=== PATIENT | male | born 1965 | race Two or more races ===

== ENCOUNTER 2020-03-21 13:48 | Outpatient (REF) | payer OTHER, SELFPAY | END 2020-03-21 13:49 | disposition home or self-care (01) | LOC: HO.LAB 13:48 | PROVIDERS: Visit Provider Internal Medicine | DX: Z20.828 Contact with and (suspected) exposure to other viral communicable diseases (principal) | CPT/HCPCS: C9803; U0003 ==

== ENCOUNTER 2021-01-12 09:21 | Outpatient (REF) | payer OTHER, SELFPAY ==
[2021-01-12 10:29] LABS: MANUAL DIFF FLAG NO
[2021-01-12 10:41] LABS: Basophils Percent Auto 0.6 % (0-2); Eosinophils Absolute Auto 0.3 X10*3/uL (0.0-0.4); Eosinophils Percent Auto 6.7 % (0-4); Hematocrit 41.6 % (42-52); Hemoglobin 14.5 g/dl (14.0-18.0); Lymphocytes Absolute Auto 1.7 X10*3/uL (1.2-4.9); Lymphocytes Percent Auto 35.6 % (20-40); Mean Corpuscular HGB Conc 34.9 g/dl (31.0-36.0); Mean Corpuscular Hemoglobin 29.3 pg (27.0-33.0); Mean Platelet Volume 8.4 fL (9.4-12.4); Monocytes Absolute Auto 0.8 X10*3/uL (0.1-1.2); Monocytes Percent Auto 17.5 % (2-11); Neutrophils Absolute Auto 1.9 X10*3/uL (2.0-8.3); Neutrophils Percent Auto 39.6 % (45-73); Platelet Count 201 X10*3/uL (160-400); Red Blood Count 4.95 X10*6/uL (4.60-5.80); Red Cell Distribution Width 12.4 % (11.0-16.0); White Blood Count 4.8 X10*3/uL (4.8-10.8)
[2021-01-12 10:57] LABS: Alanine Aminotransferase 24 U/L (0-40); Albumin Level 4.3 g/dL (3.5-5.0); Alkaline Phosphatase 64 U/L (39-117); Anion Gap 11 (12-20); Aspartate Amino Transferase 24 U/L (5-37); Bilirubin Total 0.8 mg/dL (0.0-1.0); Blood Urea Nitrogen 15 mg/dL (9-16); Calcium 9.5 mg/dL (8.4-10.2); Carbon Dioxide 30 mmol/L (22-29); Chloride 101 mmol/L (96-108); Cholesterol 184 mg/dL; Estimated Glomerular Filt Rate > 60; Glucose Fasting 97 mg/dL (60-99); HDL Cholesterol 65 mg/dL; LDL Cholesterol Calculated 105 mg/dl; Potassium 3.6 mmol/L (3.3-5.1); Sodium 138 mmol/L (135-145); Total Protein 7.2 g/dL (6.5-8.0); Triglycerides 71 mg/dL
[2021-01-12 11:04] LABS: Appearance Urine CLEAR; Color Urine YELLOW; Glucose Urine UA NEG (NEG); Leukocyte Esterase Urine NEG (NEG); Nitrite Urine NEG (NEG); Specific Gravity - Urine 1.025 (1.005-1.025); Urine Blood NEG (NEG); Urine Ketones NEG (NEG); Urine Protein NEG (NEG-TRACE)
[2021-01-12 11:21] LABS: Prostate Specific Antigen Scr 3.66 ng/mL (<0.05-4.0); TSH reflex Free T4 1.34 uIU/mL (0.32-4.0); Vitamin D 25-OH Total 23.5 ng/mL (>30)
== END 2021-01-12 09:22 | disposition home or self-care (01) ==
LOC: HO.LAB 09:21
PROVIDERS: PCP Internal Medicine; Visit Provider Internal Medicine
DX: Z00.00 Encounter for general adult medical examination without abnormal findings (principal); I10 Essential (primary) hypertension; E66.3 Overweight; E55.9 Vitamin D deficiency, unspecified
CPT/HCPCS: 36415; 80053; 80061; 81003; 82306; 84153; 84443; 85025

== ENCOUNTER → 2021-06-15 09:19 | Outpatient (BNVA) | payer OTHER, SELFPAY | PROVIDERS: PCP Internal Medicine; Referring Provider Internal Medicine; Visit Provider Physician Assistant ==

== ENCOUNTER 2021-08-25 08:40 | Day surgery (SDC) | payer OTHER, SELFPAY ==
[2021-08-21 14:53] VITALS: BMI 28.7
--- NOTE | 2021-08-24 11:58 | P.CONAN_ITS ---
Documented by User: Mell Kapadia NP 08/24/21 11:59 HPI - Anesthesia Eval Consult details Narrative: 56yo M for Colonoscopy PMFSH Active Problems Active Problems: All Active Problems (Updated 06/30/21 @ 04:22 by Jhon Kyle MD) Constipation (Acute) Vitamin D deficiency (Acute) Colon cancer screening (Acute) Overweight (BMI 25.0-29.9) (Acute) Migraine (Acute) Asthma (Acute) Benign essential hypertension (Acute) Annual physical exam (Acute) Past Medical History Medical History (Updated 06/30/21 @ 04:22 by Jhon Kyle MD) Active asthma Asthma Benign essential hypertension Constipation High blood pressure Migraine Overweight (BMI 25.0-29.9) Vitamin D deficiency Family History Family History Mother Diabetes Father Diabetes High blood pressure Surgical History Surgical History History of hernia surgery Social History Social History Housing: House Alcohol intake: current Alcohol intake frequency: a few times a month Alcohol type: beer Patient Tobacco Use Status: Never used Tobacco Second Hand Smoke Exposure: Yes Use of substances other than those prescribed or required for medical reasons: No Are you DNR?: No Advance Directives: No Advance Directives Information Provided: Yes service: No Current occupational status: employed Meds Allergies Allergy/AdvReac Type Severity Reaction Status Date / Time No Known Allergies Allergy Verified 06/29/21 10:23 [No Known Allergies*] Home Medications Medication Instructions Recorded Confirmed Last Taken Type multivitamin 1 tab PO DAILY 12/21/20 08/21/21 Unknown History sumatriptan 20 mg/actuation nasal 20 mg INTRANASAL ONCE PRN ea 12/21/20 08/21/21 Unknown History spray Exam Exam Date and Time: August 24, 2021 1158 Height,Weight and Vital Signs: Height 5 ft 11 in Weight 93.44 kg Assessment and Plan Assessment Anesthesia Assessment: Chart Reviewed Documented by User: Regla Sales MD 08/25/21 10:03 [facility] Past Medical History Medical History (Updated 06/30/21 @ 04:22 by Jhon Kyle MD) Active asthma Asthma Benign essential hypertension Constipation High blood pressure Migraine Overweight (BMI 25.0-29.9) Vitamin D deficiency Family History Family History Mother Diabetes Father Diabetes High blood pressure Family history of problems with anesthesia: No Surgical History Surgical History History of hernia surgery History of Problems with Anesthesia: No Social History Social History Housing: House Alcohol intake: current Alcohol intake frequency: a few times a month Alcohol type: beer Patient Tobacco Use Status: Never used Tobacco Second Hand Smoke Exposure: Yes Use of substances other than those prescribed or required for medical reasons: No Are you DNR?: No Advance Directives: No Advance Directives Information Provided: Yes service: No Current occupational status: employed Meds Allergies Allergy/AdvReac Type Severity Reaction Status Date / Time No Known Allergies Allergy Verified 06/29/21 10:23 [No Known Allergies*] Home Medications Medication Instructions Recorded Confirmed Last Taken Type multivitamin 1 tab PO DAILY 12/21/20 08/21/21 Unknown History sumatriptan 20 mg/actuation nasal 20 mg INTRANASAL ONCE PRN ea 12/21/20 08/21/21 Unknown History spray Exam Airway Mallampati Class: II (Missing 2 teeth) TM Dist: >3cm Neck ROM: Full Heart: rrr Lungs: cta Assessment and Plan Assessment Anesthesia Assessment: Anesthesia Plan Discussed and Chart Reviewed Final Anesthetic Review Family History of Problems with Anesthesia: No History of Problems with Anesthesia: No NPO: Yes ASA Class: II Final Preanesthetic Review: No Changes in Pt Med Stat, Meds/Allgs Chart Reviewed and Consent Obtained/Reviewed Patient Risk: Intermediate Procedure Risk: Intermediate Anesthetic Plan Anesthetic Plan: MAC: Disposition: Standard PACU
--- NOTE | 2021-08-25 09:20 | MHC.SHP ---
Pre-Procedural Eval Section A Date of Service: 08/25/21 The patient is an INPATIENT: No The History & Physical has been completed within 30 days and I have reviewed it.: No Section B Chief Complaint: screening Details of Present Illness: Colon cancer screening Relevant Family History (Specify if Yes): No Relevant Social History: None Present Medications: see Short Stay Collaborative assessment Medical History: Significant History (Asthma Benign essential hypertension High blood pressure Migraine Overweight (BMI 25.0-29.9)) History of Previous Operations: Relevant previous surgery/procedure and date(s) (History of hernia surgery) Allergies: Allergies Allergy/AdvReac Type Severity Reaction Status Date / Time No Known Allergies Allergy Verified 06/29/21 10:23 [No Known Allergies*] Review of Systems Sugical H&P ROS: Negative: Constitution, Cardiovascular, Respiratory and Gastrointestinal Exam Surgical H&P Exam: Normal: Heart, Normal: Lungs, Normal: Extremities and Normal: Abdomen Plan Diagnosis/Plan: Unchanged I have reviewed the history and physical and performed a pertinent physical examination on my patient. No changes have occurred unless specified.
--- NOTE | 2021-08-25 09:21 | P.OP_ITS ---
Operative Note Operative Note Date of Service: 08/25/21 Narrative: Pre-op diagnosis: Colon cancer screening Post-op diagnosis:?other (Colon polyp, diverticulosis, hemorrhoids) Procedure: COLONOSCOPY TILL CECUM WITH SNARE POLYPECTOMY Consent: Indications for the procedure and potential complications of bleeding, perforation, reaction to medications and missed diagnosis were discussed with the patient and informed consent was obtained. Instrument: Olympus PCF H 190 L variable stiffness pediatric colonoscope Monitoring: Vital signs and clinical assessment, intermittent blood pressure monitoring, continuous EKG monitoring, Pulse oximetry and Carbon Dioxide monitoring were done throughout the procedure. Colon withdrawl time was 20 minutes. Procedure: The patient was placed in the left lateral decubitis position and pre-procedure medications were administered. After a digital rectal examination of the ano-rectum, the video colonoscope was inserted into the rectum and advanced through the colon to the cecum. The colonoscope was slowly withdrawn in a retrograde panoramic fashion and the colon mucosa was carefully examined including a retroflexed view of the rectum. Findings and interventions are described below. Procedure Difficulty: Without difficulty Findings: Terminal Ileum: Not evaluated Cecum:? A 10 mm sessile adenomatous appearing polyp removed with a cold snare Ascending Colon:? Normal Transverse Colon:? Normal Descending Colon:? Moderate diverticulosis Sigmoid Colon:? Moderate diverticulosis Rectum:? Normal Ano-rectum:? Moderate internal hemorrhoids Colon preparation:? Good? Impression and Post Procedure Diagnosis: Colonoscopy Findings: One medium sized polyps removed Moderate diverticulosis seen in the left colon Moderate hemorrhoids on retroflexed exam. Plan: Await pathology results Patient has an appointment on 09/07/21 in the [facility] with MICHAEL Car. Repeat Colonoscopy interval based on path results - in 3-5 years if polyps are adenomatous and 10 years if polyps are hyperplastic. Above findings were reviewed with the patient and colon polyps and diverticulosis handouts were given in the discharge area Surgeon: Sammy Arevalo MD Anesthesia:?MAC (Dr Frank) Was an Line Maintainer Section used for this Procedure?:?Yes Line Maintainer Section:?Oliva Orantes Estimated blood loss (mL):?0 Pathology:?other (A. cecal polyp) Condition:?stable Disposition:?PACU
[2021-08-25 09:51] VITALS: BP 145/81; PULSE 71; RESP 16; TEMP 36.2; O2SAT 99
[2021-08-25] MEDS: Lactated Ringers 1,000 ML 100 ML IVCONT (09:52)
[2021-08-25 10:52] VITALS: BP 105/54; PULSE 76; RESP 16; TEMP 37; O2SAT 97
[2021-08-25 11:07] VITALS: BP 112/71; PULSE 65; RESP 16; TEMP 37; O2SAT 96
== END 2021-08-25 12:00 | disposition home or self-care (01) ==
PROVIDERS: PCP Internal Medicine; Visit Provider Internal Medicine Gastroenterology
PROC: 0DJD8ZZ Inspection of Lower Intestinal Tract, Via Natural or Artificial Opening Endoscopic (ICD-10-PCS; CPT 45378; principal; 2021-08-25 10:10)
DX: Z12.11 Encounter for screening for malignant neoplasm of colon (principal); Z80.0 Family history of malignant neoplasm of digestive organs; D12.0 Benign neoplasm of cecum; K57.30 Diverticulosis of large intestine without perforation or abscess without bleeding; K64.8 Other hemorrhoids; K59.00 Constipation, unspecified; I10 Essential (primary) hypertension; J45.909 Unspecified asthma, uncomplicated; Z79.51 Long term (current) use of inhaled steroids; Z79.899 Other long term (current) drug therapy; E66.3 Overweight; Z68.30 Body mass index [BMI] 30.0-30.9, adult
CPT/HCPCS: 45385; 88305

== ENCOUNTER 2022-01-05 10:59 | Outpatient (REF) | payer OTHER, SELFPAY ==
[2022-01-05 11:15] LABS: MANUAL DIFF FLAG NO
[2022-01-05 11:46] LABS: Basophils Percent Auto 0.5 % (0-2); Eosinophils Absolute Auto 0.3 X10*3/uL (0.0-0.4); Eosinophils Percent Auto 4.7 % (0-4); Hemoglobin 15.1 g/dl (14.0-18.0); Imm Gran Abs Auto 0.01 X10*3/uL (0.00-0.03); Imm Gran Pct Auto 0.2 % (0.0-0.4); Lymphocytes Absolute Auto 2.3 X10*3/uL (1.2-4.9); Lymphocytes Percent Auto 41.3 % (20-40); Mean Corpuscular HGB Conc 35.1 g/dl (31.0-36.0); Mean Corpuscular Hemoglobin 29.7 pg (27.0-33.0); Mean Corpuscular Volume 84.6 fL (80.0-98.0); Mean Platelet Volume 8.6 fL (9.4-12.4); Monocytes Absolute Auto 0.7 X10*3/uL (0.1-1.2); Monocytes Percent Auto 11.8 % (2-11); Neutrophils Absolute Auto 2.3 x10*3/uL (2.0-8.3); Neutrophils Percent Auto 41.5 % (45-73); Platelet Count 218 X10*3/uL (160-400); Red Blood Count 5.08 X10*6/uL (4.60-5.80); Red Cell Distribution Width 12.4 % (11.0-16.0); White Blood Count 5.6 X10*3/uL (4.8-10.8)
[2022-01-05 12:31] LABS: Alanine Aminotransferase 29 U/L (0-40); Albumin Level 4.3 g/dL (3.5-5.0); Alkaline Phosphatase 68 U/L (39-117); Anion Gap 15 (12-20); Aspartate Amino Transferase 29 U/L (5-37); Bilirubin Total 0.7 mg/dL (0.0-1.0); Blood Urea Nitrogen 14 mg/dL (9-16); Calcium 9.5 mg/dL (8.4-10.2); Carbon Dioxide 28 mmol/L (22-29); Chloride 100 mmol/L (96-108); Cholesterol 185 mg/dL; Estimated Glomerular Filt Rate > 60; Glucose Fasting 88 mg/dL (60-99); HDL Cholesterol 57 mg/dL; LDL Cholesterol Calculated 112 mg/dl; Potassium 3.6 mmol/L (3.3-5.1); Sodium 139 mmol/L (135-145); Total Protein 7.6 g/dL (6.5-8.0); Triglycerides 83 mg/dL
[2022-01-05 12:34] LABS: Prostate Specific Antigen Scr 3.47 ng/mL (<0.05-4.0); TSH reflex Free T4 1.36 uIU/mL (0.32-4.0); Vitamin D 25-OH Total 27.9 ng/mL (>30)
[2022-01-05 12:46] LABS: Appearance Urine Clear; Color Urine Yellow; Glucose Urine UA Negative (Negative); Leukocyte Esterase Urine Negative (Negative); Nitrite Urine Negative (Negative); Urine Blood Negative (Negative); Urine Ketones Negative (Negative); Urine Protein Negative (Neg-Trace)
== END 2022-01-05 11:00 | disposition home or self-care (01) ==
LOC: HO.LAB 10:59
PROVIDERS: PCP Internal Medicine; Visit Provider Internal Medicine
DX: Z00.00 Encounter for general adult medical examination without abnormal findings (principal); Z12.5 Encounter for screening for malignant neoplasm of prostate; E78.00 Pure hypercholesterolemia, unspecified; E55.9 Vitamin D deficiency, unspecified; I10 Essential (primary) hypertension
CPT/HCPCS: 36415; 80053; 80061; 81003; 82306; 84153; 84443; 85025

== ENCOUNTER 2023-01-07 07:44 | Outpatient (REF) | payer OTHER, SELFPAY ==
[2023-01-07 07:56] LABS: MANUAL DIFF FLAG NO
[2023-01-07 08:05] LABS: Basophils Percent Auto 0.7 % (0-2); Eosinophils Absolute Auto 0.3 X10*3/uL (0.0-0.4); Eosinophils Percent Auto 5.5 % (0-4); Lymphocytes Absolute Auto 2.5 X10*3/uL (1.2-4.9); Lymphocytes Percent Auto 40.9 % (20-40); Mean Corpuscular HGB Conc 34.8 g/dl (31.0-36.0); Mean Corpuscular Hemoglobin 29.7 pg (27.0-33.0); Mean Corpuscular Volume 85.5 fL (80.0-98.0); Mean Platelet Volume 8.3 fL (9.4-12.4); Monocytes Absolute Auto 0.8 X10*3/uL (0.1-1.2); Monocytes Percent Auto 12.7 % (2-11); Neutrophils Absolute Auto 2.4 x10*3/uL (2.0-8.3); Neutrophils Percent Auto 40.2 % (45-73); Platelet Count 224 X10*3/uL (160-400); Red Blood Count 5.38 X10*6/uL (4.60-5.80); Red Cell Distribution Width 12.8 % (11.0-16.0)
[2023-01-07 08:45] LABS: Alanine Aminotransferase 20 U/L (0-40); Albumin Level 4.4 g/dL (3.5-5.0); Alkaline Phosphatase 61 U/L (39-117); Anion Gap 12 (12-20); Aspartate Amino Transferase 18 U/L (5-37); Bilirubin Total 0.5 mg/dL (0.0-1.0); Blood Urea Nitrogen 12 mg/dL (9-16); Calcium 9.7 mg/dL (8.4-10.2); Carbon Dioxide 32 mmol/L (22-29); Chloride 101 mmol/L (96-108); Cholesterol 189 mg/dL (<200); Estimated Glomerular Filt Rate > 60; Glucose Fasting 113 mg/dL (60-99); HDL Cholesterol 62 mg/dL (>40); LDL Cholesterol Calculated 109 mg/dL (<100); Potassium 3.5 mmol/L (3.3-5.1); Sodium 141 mmol/L (135-145); Total Protein 7.7 g/dL (6.5-8.0); Triglycerides 91 mg/dL (<150)
[2023-01-07 09:04] LABS: TSH reflex Free T4 2.16 uIU/mL (0.32-4.0); Vitamin D 25-OH Total 35.2 ng/mL (>30)
[2023-01-07 09:43] LABS: Appearance Urine Clear; Color Urine Dark Yellow; Glucose Urine UA Negative (Negative); Leukocyte Esterase Urine Negative (Negative); Nitrite Urine Negative (Negative); PH 6.5 (5.0-9.0); Specific Gravity - Urine 1.025 (1.005-1.025); Urine Blood Negative (Negative); Urine Ketones Trace mg/dL (Negative); Urine Protein Trace mg/dL (Neg-Trace)
== END 2023-01-07 07:45 | disposition home or self-care (01) ==
LOC: HO.LAB 07:44
PROVIDERS: PCP Internal Medicine; Visit Provider Internal Medicine
DX: Z00.00 Encounter for general adult medical examination without abnormal findings (principal); I10 Essential (primary) hypertension; E78.00 Pure hypercholesterolemia, unspecified; R30.0 Dysuria; E55.9 Vitamin D deficiency, unspecified; R97.20 Elevated prostate specific antigen [PSA]; Z12.5 Encounter for screening for malignant neoplasm of prostate
CPT/HCPCS: 36415; 80053; 80061; 81003; 82306; 84153; 84443; 85025

== ENCOUNTER 2023-01-11 08:40 | Outpatient (AMB) | payer OTHER, SELFPAY ==
--- NOTE | 2023-01-11 08:46 | A.OFFPC_ITS ---
Vital Signs 01/11/23 08:47 Height 5 ft 11 in Weight 213 lb 4 oz BMI 29.7 BP 128/78 Blood Pressure Location Lt brachial Position Sitting Pulse 87 Pulse Source Pulse Oximeter Pulse Oximetry (%) 97 Oxygen Delivery Method Room Air Intake Visit Reasons: PE Intake Note: Patient is here today for a physical. 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 International Guest Coordinator: Not Required per policy Accompanied by: Self / Same As Patient Allergies No Known Allergies [No Known Allergies*] Allergy (Verified 01/11/23 09:38) Medication List - Last Reconciled 01/11/23 by Jhon Kyle MD albuterol sulfate 2.5 mg (3 mL) continuous nebulization Q4-6H PRN albuterol sulfate 90 mcg/actuation (ProAir HFA) 2 puffs inhalation Q6H PRN 30 days chlorthalidone 25 mg PO DAILY 90 days cholecalciferol (vitamin D3) 50 mcg PO DAILY 90 days fluticasone propionate 110 mcg/actuation (Flovent HFA) 1 puff inhalation BID 30 days losartan 100 mg PO DAILY 90 days methylcellulose (laxative) (Citrucel) 500 mg PO BID 30 days multivitamin 1 tab PO DAILY potassium chloride ER 20 mEq PO DAILY 90 days sildenafil 50 mg PO DAILY PRN sumatriptan 20 mg/actuation 20 mg intranasal ONCE PRN Tobacco use date assessed: 01/11/23 Dental Screening Dental Screen Date: 01/11/23 Did you have a dental visit in the last 12 months?: Yes Did you have a dental problem in the last 6 months where you did not have access to dental care?: No Was dental information given to patient?: Patient has dentist HPI PE HPI Details Patient comes in today for his annual physical examination States that he feels okay He denies any headaches or dizziness Denies any chest pains, no SOB No nausea/vomiting, no abdominal pain No change in bowel habits noted Denies any acute urinary symptoms Needs his Sumatriptan nasal spray and Sildenafil Rx refilled Had his follow up labs done a few days ago - to discuss his results Had his screening colonoscopy last done with Dr. Arevalo last year in July 2021 - (+) tubular adenoma and he is recommended to get a repeat colonoscopy in 3 to 5 years [facility] Medical History Constipation Vitamin D deficiency Overweight (BMI 25.0-29.9) Migraine Asthma Benign essential hypertension High blood pressure Active asthma Surgical History Hx of colonoscopy History of hernia surgery Family History Mother Diabetes Father Diabetes High blood pressure Social History Housing: House Alcohol intake: current Alcohol intake frequency: a few times a month Alcohol type: beer Patient Tobacco Use Status: Never used Tobacco e-Cigarette/Vaping Use: Never Used Second Hand Smoke Exposure: Yes service: No Current occupational status: employed Cognitive needs: No Hearing needs: No Vision needs: No Questionnaire PHQ-9 Over the last 2 weeks, how often have you been bothered by any of the following problems? 1. Little interest or pleasure in doing things: not at all 2. Feeling down, depressed, or hopeless: not at all 3. Trouble falling or staying asleep, or sleeping too much: not at all 4. Feeling tired or having little energy: not at all 5. Poor appetite or overeating: not at all 6. Feeling bad about yourself - or that you are a failure or have let yourself or your family down: not at all 7. Trouble concentrating on things, such as reading the newspaper or watching television: not at all 8. Moving or speaking so slowly that other people could have noticed. Or the opposite - being so fidgety or restless that you have been moving around a lot more than usual: not at all 9. Thoughts that you would be better off or of hurting yourself in some way: not at all Total score: 0 Depression Screening Interpretation: Negative 85954 - PHQ-9 Billing: Yes Source: Developed by Drs. Ruiz Calix, Carmen Domínguez, Ramon Falcon and colleagues, with an educational evert from [employer]. Thrive Questionnaire Date Thrive assessed: 01/11/23 I am a: Patient What is your living situation today?: I have a steady place to live Within the past 12 months, did the food you bought not last and you didn't have the money to get more?: Never true Within the past 12 months, did you worry whether your food would run out before you got money to buy more?: Never true Currently or been in a relationship where the following occur: no concerns reported AUDIT C Alcohol Use Questionnaire (AUDIT-C) 1. How often do you have a drink containing alcohol?: Never 3. How often do you have six or more drinks on one occasion?: Never Total Score: 0 Score Reviewed/Action Taken: Yes GERARDO-7 AMB Questionnaire GERARDO-7 Date GERARDO - 7 assessed: 07/12/22 Source: Developed by Drs. Ruiz Calix, Carmen Domínguez, Ramon Falcon and colleagues, with an educational evert from [employer]. Review of Systems Const Denies chills, Denies fatigue, Denies fever(s), Denies headache(s), Denies malaise and Denies weakness Eyes Denies blurry vision, Denies change in vision, Denies irritation and Denies itchy eyes ENT Denies dysphagia, Denies dizziness, Denies otalgia, Denies headache(s), Denies nasal congestion, Denies neck pain, Denies odynophagia and Denies sore throat Card Denies chest pain, Denies rapid heart rate, Denies irregular heart rhythm, Denies palpitations and Denies dyspnea Resp Denies chest congestion, Denies cough, Denies dyspnea and Denies wheezing GI Denies abdominal pain, Denies bloating, Denies constipation, Denies dysphagia, Denies heartburn, Denies diarrhea, Denies nausea, Denies odynophagia and Denies vomiting Denies hematuria, Denies difficulty urinating, Denies dysuria, Denies urinary frequency and Denies urinary urgency Musc Denies back pain, Denies arthralgias, Denies joint swelling, Denies muscle weakness and Denies neck pain Skin/Breast Denies change in pigmentation, Denies lesions, Denies rash and Denies unusual bruising Neuro Denies dizziness, Denies headache(s), Denies paresthesias and Denies weakness Endo Denies fatigue and Denies palpitations Aller/Immun Denies itchy eyes and Denies wheezing Physical exam (Primary Care) Vital Signs: Last Vital Signs Pulse 87 01/11/23 08:47 BP 128/78 01/11/23 08:47 Pulse Ox 97 01/11/23 08:47 Oxygen Delivery Method Room Air 01/11/23 08:47 BMI result Body Mass Index 29.7 Tobacco/Smoking Status: Tobacco use Status Tobacco use date assessed 01/11/23 01/11/23 08:52 Patient Tobacco Use Status Never used Tobacco 01/11/23 08:52 e-Cigarette/Vaping Use Never Used 01/11/23 08:52 Depression Screening Interpretation: Negative Thrive Assessment: Date of Thrive Assessment Date Thrive assessed 07/12/22 01/11/23 08:52 Currently or been in a relationship where the following occur: no concerns reported Const General: no acute distress, alert and awake Orientation/consciousness: patient oriented x3 HENMT Head: Yes normocephalic and Yes atraumatic Ears: external ears normal, TM's normal bilaterally and EAC's normal General nose exam: No nasal discharge present Face and sinus: Yes normal facial exam and Yes sinuses nontender Teeth and gingiva: dentition normal Throat: Yes posterior oropharynx normal and Yes tonsils normal (no TP congestion) Eyes Eyelids: Yes eyelids normal Conjunctivae: conjunctivae normal Pupils: Equal, round and reactive pupils present EOM: EOMs intact bilaterally Neck Neck: Yes no lymphadenopathy and Yes supple Thyroid: Thyroid normal Resp Auscultation: clear to auscultation bilaterally, no rales and no wheezes Cardio Rate: regular rate Rhythm: regular rhythm Heart sounds: no murmurs GI Palpation (GI): Soft to palpation, nontender and No hepatosplenomegaly present Auscultation: normal bowel sounds General: Yes no CVA tenderness Back/Spine/Pelvis Back: no CVA tenderness Thoracic/Lumbar Spine: thoracic and lumbar spine normal to inspection Skin Lesions: no lesions Rashes: no rashes Neuro General: patient oriented x3, moves all extremities, no focal motor deficits and CN's II-XI intact bilaterally Cranial nerves: Yes Equal, round and reactive pupils present Cognition (Neuro): normal cognition Gait exam (Neuro): Normal gait present Extrem General: Yes no clubbing, cyanosis or edema Results Reviewed Results Reviewed: Laboratory Tests 01/07/23 01/07/23 01/07/23 07:50 07:55 07:55 WBC 6.0 Hgb 16.0 Hct 46.0 Plt Count 224 Sodium 141 Potassium 3.5 Creatinine 0.85 Estimated GFR > 60 Fasting Glucose 113 H Calcium 9.7 AST 18 ALT 20 Triglycerides 91 Cholesterol 189 LDL Cholesterol, Calc 109 H HDL Cholesterol 62 Total PSA 3.90 25-OH Vitamin D Total 35.2 TSH 2.16 Urine pH 6.5 Ur Specific [place] 1.025 Urine Protein Trace Urine Glucose (UA) Negative Urine Blood Negative Assessment and Plan Assessment & Plan (1) Annual physical exam: Code(s): Z00.00 - Encounter for general adult medical examination without abnormal findings Plan: Results of his labs done a few days ago reviewed and discussed with patient He is up-to-date with his colon cancer screening - was done in 07/2021 and he is due for repeat in 3 to 5 years (tubular adenoma) (2) Benign essential hypertension: Code(s): I10 - Essential (primary) hypertension Plan: Reinforced low sodium diet - goal is systolic BP of 120 mm or less Continue Losartan 100 mg QD and Chlorthalidone 25 mg QD; is also on KCl ER 20 meq QD for potassium supplement/replacement (3) Asthma: Code(s): J45.909 - Unspecified asthma, uncomplicated Qualifiers: Asthma severity: moderate Asthma persistence: persistent Asthma complication type: uncomplicated Qualified Code(s): J45.40 - Moderate persistent asthma, uncomplicated Plan: Continue Flovent HFA 110 mcg 1 inhalation BID and Albuterol HFA 1 to 2 inhalations every 6 hours NEEDED Also has Albuterol solution that he uses with his nebulizer when needed (4) Migraine: Code(s): G43.909 - Migraine, unspecified, not intractable, without status migrainosus Qualifiers: Migraine type: unspecified Status migrainosus presence: without status migrainosus Intractability: not intractable Qualified Code(s): G43.909 - Migraine, unspecified, not intractable, without status migrainosus Plan: Stable Continue Sumatriptan 20 mg nasal spray PRN - Rx refill sent to pharmacy (5) Impaired fasting glucose: Code(s): R73.01 - Impaired fasting glucose Plan: Cautioned that his FBS was elevated on his recent labs Patient admits to eating some sweets and pastries while at work (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); states that one of his co-workers often brings some sweets and desserts to work and shares them with him - states that he will try to stay away from these as much as he can from now on Reinforced low calorie/low carb diet We will recheck his RBS and maybe his HgbA1c in the office at his next follow up appt (6) Vitamin D deficiency: Code(s): E55.9 - Vitamin D deficiency, unspecified Plan: Corrected - continue Vitamin D3 2000 units QD (7) Constipation: Code(s): K59.00 - Constipation, unspecified Qualifiers: Constipation type: unspecified constipation type Qualified Code(s): K59.00 - Constipation, unspecified Plan: Reinforced increased oral fluids and dietary fiber Continue Bisacodyl 10mg QD PRN and Miralax 17 gm QD Is also on Citrucel 500 mg BID, which helps with his bowel movements as well (8) Erectile dysfunction: Code(s): N52.9 - Male erectile dysfunction, unspecified Qualifiers: Erectile dysfunction type: unspecified Qualified Code(s): N52.9 - Male erectile dysfunction, unspecified Plan: Continue Sildenafil 50 mg PRN Advised/reassured that his PSA on his recent labs came back normal (9) Overweight (BMI 25.0-29.9): Code(s): E66.3 - Overweight Plan: Reinforced diet/exercise as tolerated/lose weight Plan Follow up in 6 months Medications: New sumatriptan 20 mg/actuation 20 mg intranasal ONCE PRN 6 ea 5RF migraine headache Refilled albuterol sulfate 2.5 mg (3 mL) continuous nebulization Q4-6H PRN 15 mL 0RF wheezing albuterol sulfate 90 mcg/actuation (ProAir HFA) 2 puffs inhalation Q6H 30 days PRN 18 grams 5RF shortness of breath or wheezing J45.909 - Unspecified asthma, uncomplicated potassium chloride ER 20 mEq PO DAILY 90 days 90 tabs 1RF I10 - Essential (primary) hypertension sildenafil administer 30 minutes to 4 hours before activity 50 mg PO DAILY PRN 10 tabs 2RF sexual activity chlorthalidone 25 mg PO DAILY 90 days 90 tabs 1RF I10 - Essential (primary) hypertension Coding Level of Care Code Est Pt Prev Care 40-64y(54492) Diagnoses Annual physical exam Z00.00 Benign essential hypertension I10 Moderate persistent asthma without complication J45.40 Asthma severity: moderate Asthma persistence: persistent Asthma complication type: uncomplicated Migraine without status migrainosus, not intractable, unspecified migraine type G43.909 Migraine type: unspecified Status migrainosus presence: without status migrainosus Intractability: not intractable Impaired fasting glucose R73.01 Vitamin D deficiency E55.9 Constipation, unspecified constipation type K59.00 Constipation type: unspecified constipation type Erectile dysfunction, unspecified erectile dysfunction type N52.9 Erectile dysfunction type: unspecified Overweight (BMI 25.0-29.9) E66.3
[2023-01-11 08:47] VITALS: BP 128/78; PULSE 87; O2SAT 97; BMI 29.7
== END 2023-01-11 09:56 | disposition home or self-care (01) ==
PROVIDERS: PCP Internal Medicine; Visit Provider Internal Medicine
DX: Z00.00 Encounter for general adult medical examination without abnormal findings (principal); I10 Essential (primary) hypertension; J45.40 Moderate persistent asthma, uncomplicated; E55.9 Vitamin D deficiency, unspecified; G43.909 Migraine, unspecified, not intractable, without status migrainosus; R73.01 Impaired fasting glucose; K59.00 Constipation, unspecified; N52.9 Male erectile dysfunction, unspecified; E66.3 Overweight
CPT/HCPCS: 99396

== ENCOUNTER 2023-07-10 08:53 | Outpatient (AMB) | payer OTHER, SELFPAY ==
[2023-07-10 08:57] VITALS: BP 128/78; PULSE 87; O2SAT 98; BMI 29.0
--- NOTE | 2023-07-10 08:57 | MHC.PC.OV ---
Vital Signs 07/10/23 08:57 Height 5 ft 11 in Weight 208 lb 2 oz BMI 29.0 BP 128/78 Blood Pressure Location Lt brachial Position Sitting Pulse 87 Pulse Source Pulse Oximeter Pulse Oximetry (%) 98 Oxygen Delivery Method Room Air Intake Visit Reasons: HTN, asthma, IFG, migraine Intake Note: Patient is here to follow up on HTN, Asthma, IFG, Migraine. 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 Accompanied by: Self / Same As Patient Allergies No Known Allergies [No Known Allergies*] Allergy (Verified 07/10/23 09:19) Medication List - Last Reconciled 07/10/23 by Jhon Kyle MD albuterol sulfate 90 mcg/actuation (ProAir HFA) 2 puffs inhalation Q6H PRN 30 days albuterol sulfate 2.5 mg (3 mL) continuous nebulization Q4-6H PRN beclomethasone dipropionate 80 mcg/actuation (Qvar RediHaler) 1 inh inhalation BID chlorthalidone 25 mg PO DAILY 90 days cholecalciferol (vitamin D3) 50 mcg PO DAILY 90 days fluticasone propionate 110 mcg/actuation (Flovent HFA) 1 puff inhalation BID 30 days losartan 100 mg PO DAILY 90 days methylcellulose (laxative) (Citrucel) 500 mg PO BID 30 days multivitamin 1 tab PO DAILY potassium chloride ER 20 mEq PO DAILY 90 days sildenafil 50 mg PO DAILY PRN sumatriptan 20 mg/actuation 20 mg intranasal ONCE PRN Tobacco use date assessed: 07/10/23 Dental Screening Dental Screen Date: 07/10/23 Did you have a dental visit in the last 12 months?: No Did you have a dental problem in the last 6 months where you did not have access to dental care?: No Was dental information given to patient?: Patient has dentist HPI HTN, asthma, IFG, migraine HPI Details Patient comes in today for his follow up visit States that he came down with some respiratory infection about 3 weeks ago wherein he was experiencing increased cough and congestion for several days Notes that most of his symptoms have since subsided but he still has a lingering cough - states that his cough seems to flare up with activity and he still coughs up some thick yellowish phlegm every now and then He denies any fever or sore throat; denies any headaches or dizziness Denies any chest pains, no SOB although his chest feels somewhat tight at times No nausea/vomiting, no abdominal pain No change in bowel habits noted Needs a few of his Rx refilled PFSH Medical History (Updated 07/10/23 @ 09:28 by Jhon Kyle MD) Constipation Vitamin D deficiency Overweight (BMI 25.0-29.9) Migraine Asthma Benign essential hypertension Surgical History Hx of colonoscopy History of hernia surgery Family History Mother Diabetes Father Diabetes High blood pressure Social History Housing: House Alcohol intake: current Alcohol intake frequency: a few times a month Alcohol type: beer Patient Tobacco Use Status: Never used Tobacco e-Cigarette/Vaping Use: Never Used Second Hand Smoke Exposure: Yes service: No Current occupational status: employed Cognitive needs: No Hearing needs: No Vision needs: No Questionnaire PHQ-9 Over the last 2 weeks, how often have you been bothered by any of the following problems? 1. Little interest or pleasure in doing things: not at all 2. Feeling down, depressed, or hopeless: not at all 3. Trouble falling or staying asleep, or sleeping too much: not at all 4. Feeling tired or having little energy: not at all 5. Poor appetite or overeating: not at all 6. Feeling bad about yourself - or that you are a failure or have let yourself or your family down: not at all 7. Trouble concentrating on things, such as reading the newspaper or watching television: not at all 8. Moving or speaking so slowly that other people could have noticed. Or the opposite - being so fidgety or restless that you have been moving around a lot more than usual: not at all 9. Thoughts that you would be better off or of hurting yourself in some way: not at all Total score: 0 Depression Screening Interpretation: Negative Depression Screening Done: Yes 88241 - PHQ-9 Billing: Yes Source: Developed by Drs. Ruiz Calix, Carmen Domínguez, Ramon Falcon and colleagues, with an educational evert from [employer]. Thrive Questionnaire Date Thrive assessed: 07/10/23 I am a: Patient What is your living situation today?: I have a steady place to live Within the past 12 months, did the food you bought not last and you didn't have the money to get more?: Never true Within the past 12 months, did you worry whether your food would run out before you got money to buy more?: Never true Do you have trouble paying for medicines?: No Do you have trouble getting transportation to medical appointments?: No Do you have trouble paying your heating and electricity bill?: No Do you have trouble taking care of your child, family member or friend?: No Do you have trouble with day-to-day activities such as bathing, preparing meals, shopping, managing finances, etc.?: No Are you currently unemployed and looking for a job?: No Are you interested in more education?: No Please select the resources that you would like help with: None Currently or been in a relationship where the following occur: no concerns reported THRIVE Score: 0 AUDIT C Alcohol Use Questionnaire (AUDIT-C) 1. How often do you have a drink containing alcohol?: Never 3. How often do you have six or more drinks on one occasion?: Never Total Score: 0 Score Reviewed/Action Taken: Yes GERARDO-7 AMB Questionnaire GERARDO-7 Date GERARDO - 7 assessed: 07/10/23 Feeling nervous, anxious, or on edge: 0 = Not at all Not being able to stop or control worryin = Not at all Worrying too much about different things: 0 = Not at all Trouble relaxin = Not at all Being so restless that it is hard to sit still: 0 = Not at all Becoming easily annoyed or irritable: 0 = Not at all Feeling afraid as if something awful might happen: 0 = Not at all Total GERARDO-7 score (0-4 normal; 5-9 mild; 10-14 moderate; 15-21 severe): 0 Source: Developed by Drs. Ruiz Calix, Carmen Domínguez, Ramon Falcon and colleagues, with an educational evert from [employer]. Review of Systems Const Denies chills, Denies fatigue, Denies fever(s) and Denies headache(s) ENT Denies dysphagia, Denies dizziness, Denies otalgia, Denies headache(s), Denies neck pain, Denies odynophagia and Denies sore throat Card Denies chest pain, Denies palpitations and Denies dyspnea Resp Denies chest congestion (but chest feels tight at times), Reports cough (on and off; coughs up thick yellowish phlegm occasionally), Denies dyspnea and Reports wheezing (mild, occasionally) GI Denies abdominal pain, Denies constipation, Denies dysphagia, Denies heartburn, Denies diarrhea, Denies nausea, Denies odynophagia and Denies vomiting Denies dysuria, Denies nocturia and Denies urinary frequency Musc Denies back pain and Denies neck pain Skin/Breast Denies rash Neuro Denies dizziness and Denies headache(s) Endo Denies fatigue and Denies palpitations Aller/Immun Reports wheezing (mild, occasionally) Physical exam (Primary Care) Vital Signs: Last Vital Signs Pulse 87 07/10/23 08:57 BP 128/78 07/10/23 08:57 Pulse Ox 98 07/10/23 08:57 Oxygen Delivery Method Room Air 07/10/23 08:57 BMI result Body Mass Index 29.0 Tobacco/Smoking Status: Tobacco use Status Tobacco use date assessed 07/10/23 07/10/23 08:58 Patient Tobacco Use Status Never used Tobacco 07/10/23 08:58 e-Cigarette/Vaping Use Never Used 07/10/23 08:58 PHQ-9: PHQ-9 Score PHQ-9: Total score 0 07/10/23 08:59 Depression Screening Interpretation: Negative Thrive Assessment: Date of Thrive Assessment Date Thrive assessed 07/10/23 07/10/23 08:58 Currently or been in a relationship where the following occur: no concerns reported Const General: no acute distress and alert HENMT Ears: TM's normal bilaterally and EAC's normal Throat: Yes posterior oropharynx normal and Yes tonsils normal (no TP congestion) Neck Neck: Yes no lymphadenopathy and Yes supple Thyroid: Thyroid normal Resp Auscultation: no crackles, no rales, rhonchi throughout and wheezes expiratory wheezes (occasional faint) and throughout Cardio Rate: regular rate Rhythm: regular rhythm Heart sounds: no murmurs GI Palpation (GI): Soft to palpation and nontender Auscultation: normal bowel sounds General: Yes no CVA tenderness Back/Spine/Pelvis Back: no CVA tenderness Skin Rashes: no rashes Extrem General: Yes no clubbing, cyanosis or edema Assessment and Plan Assessment & Plan (1) Asthma exacerbation: Code(s): J45.901 - Unspecified asthma with (acute) exacerbation Qualifiers: Asthma severity: mild Asthma persistence: persistent Qualified Code(s): J45.31 - Mild persistent asthma with (acute) exacerbation Plan: Will start patient empirically on Azithromycin QD x 5 days and Prednisone 20 mg QD x 3 days Continue Qvar Redihaler 80 mcg 1 inhalation BID and Albuterol HFA 2 inhalations Q 6 hours PRN (2) Benign essential hypertension: Code(s): I10 - Essential (primary) hypertension Plan: Reinforced low sodium diet - goal is systolic BP of 120 mm or less Continue Losartan 100 mg QD and Chlorthalidone 25 mg QD; is also on KCl ER 20 meq QD for potassium supplement/replacement (Rx refilled) (3) Migraine: Code(s): G43.909 - Migraine, unspecified, not intractable, without status migrainosus Qualifiers: Migraine type: unspecified Status migrainosus presence: without status migrainosus Intractability: not intractable Qualified Code(s): G43.909 - Migraine, unspecified, not intractable, without status migrainosus Plan: Stable; reinforced avoidance of migraine triggers Continue Sumatriptan 20 mg nasal spray PRN (4) Impaired fasting glucose: Code(s): R73.01 - Impaired fasting glucose Plan: Cautioned that his FBS was elevated on his recent labs Patient admits to eating some sweets and pastries 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); states that one of his co-workers often brings some sweets and desserts to work and shares them with him - states that he will try to stay away from these as much as he can from now on Reinforced low calorie/low carb diet We will recheck his FBS and also his HgbA1c at his next appt for follow up / further evaluation (5) Vitamin D deficiency: Code(s): E55.9 - Vitamin D deficiency, unspecified Plan: Continue Vitamin D3 2000 units QD (6) Constipation: Code(s): K59.00 - Constipation, unspecified Qualifiers: Constipation type: unspecified constipation type Qualified Code(s): K59.00 - Constipation, unspecified Plan: Reinforced increased oral fluids and dietary fiber Continue Bisacodyl 10mg QD PRN and Miralax 17 gm QD Is also on Citrucel 500 mg BID, which helps with his bowel movements as well (7) Erectile dysfunction: Code(s): N52.9 - Male erectile dysfunction, unspecified Qualifiers: Erectile dysfunction type: unspecified Qualified Code(s): N52.9 - Male erectile dysfunction, unspecified Plan: Continue Sildenafil 50 mg PRN (8) Overweight (BMI 25.0-29.9): Code(s): E66.3 - Overweight Plan: Reinforced diet/exercise as tolerated/lose weight Plan To return in 6 months for his next annual physical examination Patient is reminded to get his labs done BEFORE she returns in 6 months Orders: Orders Complete Blood Count Auto Diff 6 Months D64.9 - Anemia, unspecified, Z00.00 - Encounter for general adult medical examination without abnormal findings Comprehensive [place]. Panel Fast 6 Months E78.00 - Pure hypercholesterolemia, unspecified, Z00.00 - Encounter for general adult medical examination without abnormal findings Prostate Specific Antigen 6 Months N40.0 - Benign prostatic hyperplasia without lower urinary tract symptoms, Z00.00 - Encounter for general adult medical examination without abnormal findings Vitamin D 25-OH Total 6 Months E55.9 - Vitamin D deficiency, unspecified, Z00.00 - Encounter for general adult medical examination without abnormal findings Hemoglobin A1c 6 Months R73.01 - Impaired fasting glucose Lipid Panel 6 Months E78.00 - Pure hypercholesterolemia, unspecified, Z00.00 - Encounter for general adult medical examination without abnormal findings TSH reflex Free T4 6 Months E78.00 - Pure hypercholesterolemia, unspecified, Z00.00 - Encounter for general adult medical examination without abnormal findings UA CC w/rflx Micro + Cult 6 Months R30.0 - Dysuria, Z00.00 - Encounter for general adult medical examination without abnormal findings Medications: New azithromycin take 500 mg today (day 1), then 250 mg for 4 days (days 2-5) PO 6 tabs 0RF prednisone 20 mg PO DAILY 3 days 3 tabs 0RF loratadine 10 mg PO DAILY 90 days PRN 90 tabs 3RF allergy symptoms J30.9 - Allergic rhinitis, unspecified Changed From albuterol sulfate 90 mcg/actuation (ProAir HFA) 2 puffs inhalation Q6H 30 days PRN 18 grams 5RF shortness of breath or wheezing J45.909 - Unspecified asthma, uncomplicated To albuterol sulfate 90 mcg/actuation 2 puffs inhalation Q6H 30 days PRN 8.5 grams 5RF shortness of breath or wheezing J45.909 - Unspecified asthma, uncomplicated Refilled potassium chloride ER 20 mEq PO DAILY 90 days 90 tabs 1RF I10 - Essential (primary) hypertension methylcellulose (laxative) (Citrucel) 500 mg PO BID 30 days 60 tabs 5RF Coding Level of Care Code Est Pt Level 4 (69660) Diagnoses Mild persistent asthma with exacerbation J45.31 Asthma severity: mild Asthma persistence: persistent Benign essential hypertension I10 Migraine without status migrainosus, not intractable, unspecified migraine type G43.909 Migraine type: unspecified Status migrainosus presence: without status migrainosus Intractability: not intractable Impaired fasting glucose R73.01 Vitamin D deficiency E55.9 Constipation, unspecified constipation type K59.00 Constipation type: unspecified constipation type Erectile dysfunction, unspecified erectile dysfunction type N52.9 Erectile dysfunction type: unspecified Overweight (BMI 25.0-29.9) E66.3
== END 2023-07-10 09:31 | disposition home or self-care (01) ==
PROVIDERS: PCP Internal Medicine; Visit Provider Internal Medicine
DX: J45.31 Mild persistent asthma with (acute) exacerbation (principal); I10 Essential (primary) hypertension; G43.909 Migraine, unspecified, not intractable, without status migrainosus; R73.01 Impaired fasting glucose; E55.9 Vitamin D deficiency, unspecified; K59.00 Constipation, unspecified; N52.9 Male erectile dysfunction, unspecified; E66.3 Overweight
CPT/HCPCS: 99214

== ENCOUNTER 2024-01-10 09:38 | Outpatient (AMB) | payer OTHER, SELFPAY ==
--- NOTE | 2024-01-10 09:40 | A.OFFPC_ITS ---
Vital Signs 01/10/24 09:45 Height 5 ft 11 in Weight 212 lb 4 oz BMI 29.6 BP 130/88 Blood Pressure Location Lt brachial Position Sitting Pulse 82 Pulse Source Pulse Oximeter Pulse Oximetry (%) 97 Oxygen Delivery Method Room Air Intake Visit Reasons: Discuss Hernia Dermatology Nurse Required: No Accompanied by: Self / Same As Patient Allergies No Known Allergies [No Known Allergies*] Allergy (Verified 01/10/24 10:08) Medication List - Last Reconciled 01/10/24 by Jhon Kyle MD albuterol sulfate 2.5 mg (3 mL) continuous nebulization Q4-6H PRN albuterol sulfate 90 mcg/actuation 2 puffs inhalation Q6H PRN 30 days beclomethasone dipropionate 80 mcg/actuation (Qvar RediHaler) 1 inh inhalation BID chlorthalidone 25 mg PO DAILY 90 days cholecalciferol (vitamin D3) 50 mcg PO DAILY 90 days fluticasone propionate 110 mcg/actuation (Flovent HFA) 1 puff inhalation BID 30 days loratadine 10 mg PO DAILY PRN 90 days losartan 100 mg PO DAILY 90 days methylcellulose (laxative) (Citrucel) 500 mg PO BID 30 days multivitamin 1 tab PO DAILY potassium chloride ER 20 mEq PO DAILY 90 days sildenafil 50 mg PO DAILY PRN sumatriptan 20 mg/actuation 20 mg intranasal ONCE PRN Tobacco use date assessed: 07/10/23 Dental Screening Dental Screen Date: 07/10/23 HPI Discuss Hernia HPI Details Patient comes in today for evaluation of what he feels is a hernia in his perirectal area States that he first felt this a couple of weeks ago when he was cleaning up after moving his bowels He initially thought that it was a hemorrhoid but he has not noticed any blood in his stool or had any rectal bleeding lately Notes that the lesion started hurting a couple of days later and he feels that the pain has gotten worse and the lesion has gotten bigger since and this made him concerned that it could be a hernia so he called in to schedule an urgent appointment to have this checked out further States that he otherwise feels okay He denies any headaches or dizziness; denies any fever Denies any chest pains, no SOB No nausea/vomiting, no abdominal pain No change in bowel habits noted [facility] Medical History Constipation Vitamin D deficiency Overweight (BMI 25.0-29.9) Migraine Asthma Benign essential hypertension Surgical History Hx of colonoscopy History of hernia surgery Family History Mother Diabetes Father Diabetes High blood pressure Social History Housing: House Alcohol intake: current Alcohol intake frequency: a few times a month Alcohol type: beer Patient Tobacco Use Status: Never used Tobacco e-Cigarette/Vaping Use: Never Used Second Hand Smoke Exposure: Yes service: No Current occupational status: employed Cognitive needs: No Hearing needs: No Vision needs: No Questionnaire PHQ-9 Over the last 2 weeks, how often have you been bothered by any of the following problems? Depression Screening Interpretation: Negative Depression Screening Done: Yes Source: Developed by Drs. Ruiz Calix, Carmen Domínguez, Ramon Falcon and colleagues, with an educational evert from [employer]. Thrive Questionnaire Date Thrive assessed: 07/10/23 THRIVE Score: 0 GERARDO-7 AMB Questionnaire GERARDO-7 Date GERARDO - 7 assessed: 07/10/23 Source: Developed by Drs. Ruiz Calix, Carmen Domínguez, Ramon Falcon and colleagues, with an educational evert from [employer]. Review of Systems Const Denies chills, Denies fatigue, Denies fever(s) and Denies headache(s) ENT Denies dysphagia, Denies dizziness, Denies headache(s), Denies neck pain and Denies sore throat Card Denies chest pain, Denies palpitations and Denies dyspnea Resp Denies chest congestion, Denies cough, Denies dyspnea and Denies wheezing GI Details: (+) pain and swelling over the right perianal area - feels that he has a cyst there Denies abdominal pain, Denies constipation, Denies dysphagia, Denies heartburn, Denies diarrhea, Denies nausea and Denies vomiting Denies dysuria and Denies nocturia Musc Denies back pain and Denies neck pain Skin/Breast Denies rash Neuro Denies dizziness and Denies headache(s) Endo Denies fatigue and Denies palpitations Aller/Immun Denies wheezing Physical exam (Primary Care) Vital Signs: Last Vital Signs Pulse 82 01/10/24 09:45 BP 130/88 01/10/24 09:45 Pulse Ox 97 01/10/24 09:45 Oxygen Delivery Method Room Air 01/10/24 09:45 BMI result Body Mass Index 29.6 Tobacco/Smoking Status: Tobacco use Status Tobacco use date assessed 07/10/23 01/10/24 09:41 Patient Tobacco Use Status Never used Tobacco 01/10/24 09:41 e-Cigarette/Vaping Use Never Used 01/10/24 09:41 Depression Screening Interpretation: Negative Thrive Assessment: Date of Thrive Assessment Date Thrive assessed 07/10/23 01/10/24 09:41 Const General: no acute distress and alert HENMT Throat: Yes posterior oropharynx normal and Yes tonsils normal (no TP congestion) Neck Neck: Yes no lymphadenopathy and Yes supple Resp Auscultation: clear to auscultation bilaterally, no crackles, no rales and no wheezes Cardio Rate: regular rate Rhythm: regular rhythm Heart sounds: no murmurs GI Other: (+) slightly tender abscess noted over the right perinanal area Palpation (GI): Soft to palpation and nontender Auscultation: normal bowel sounds General: Yes no CVA tenderness Back/Spine/Pelvis Back: no CVA tenderness Skin Rashes: no rashes Extrem General: Yes no clubbing, cyanosis or edema Assessment and Plan Assessment & Plan (1) Perianal abscess: Code(s): K61.0 - Anal abscess Plan: Will start patient empirically on Cephalexin 500 mg Q 6 hours x 7 days Have advised that he can try hot sitz baths or apply some warm compress over his right perianal area PRN for symptomatic relief Per request, will also start him temporarily on Tramadol 50 mg TID PRN for pain Have advised that if this does not improve significantly when he returns next week for his annual PE, he will then need to see surgery for possible I & D Plan To return as scheduled next week for her annual physical examination Medications: New cephalexin 500 mg PO Q6H 28 caps 0RF 7 days tramadol 50 mg PO TID PRN 15 tabs 0RF pain 5 days Coding Level of Care Code Est Pt Level 3 (33101) Diagnoses Perianal abscess K61.0
[2024-01-10 09:45] VITALS: BP 130/88; PULSE 82; O2SAT 97; BMI 29.6
== END 2024-01-10 11:18 | disposition home or self-care (01) ==
PROVIDERS: PCP Internal Medicine; Visit Provider Internal Medicine
DX: K61.0 Anal abscess (principal)
CPT/HCPCS: 99213

== ENCOUNTER 2024-01-10 10:14 | Outpatient (REF) | payer OTHER, SELFPAY ==
[2024-01-10 10:32] LABS: MANUAL DIFF FLAG NO
[2024-01-10 10:55] LABS: Estimated Average Glucose 117 mg/dL; Hemoglobin A1c % 5.7 % (<6.0)
[2024-01-10 11:13] LABS: Appearance Urine Clear; Color Urine Yellow; Glucose Urine UA Negative (Negative); Leukocyte Esterase Urine Negative (Negative); Nitrite Urine Negative (Negative); Urine Blood Negative (Negative); Urine Ketones Negative (Negative); Urine Protein Trace mg/dL (Neg-Trace)
[2024-01-10 11:18] LABS: Alanine Aminotransferase 21 U/L (0-40); Albumin Level 4.3 g/dL (3.5-5.0); Alkaline Phosphatase 76 U/L (39-117); Anion Gap 11 (12-20); Aspartate Amino Transferase 22 U/L (5-37); Bilirubin Total 0.5 mg/dL (0.0-1.0); Blood Urea Nitrogen 12 mg/dL (9-16); Carbon Dioxide 31 mmol/L (22-29); Chloride 101 mmol/L (96-108); Cholesterol 187 mg/dL (<200); Estimated Glomerular Filt Rate > 60; Glucose Fasting 116 mg/dL (60-99); HDL Cholesterol 56 mg/dL (>40); LDL Cholesterol Calculated 119 mg/dL (<100); Potassium 3.8 mmol/L (3.3-5.1); Sodium 139 mmol/L (135-145); Total Protein 7.8 g/dL (6.5-8.0); Triglycerides 62 mg/dL (<150)
[2024-01-10 11:22] LABS: Basophils Percent Auto 0.4 % (0-2); Eosinophils Absolute Auto 0.1 X10*3/uL (0.0-0.4); Eosinophils Percent Auto 0.9 % (0-4); Hematocrit 43.7 % (42.0-52.0); Hemoglobin 15.1 g/dl (14.0-18.0); Imm Gran Abs Auto 0.01 X10*3/uL (0.00-0.03); Imm Gran Pct Auto 0.1 % (0.0-0.4); Lymphocytes Absolute Auto 1.5 X10*3/uL (1.2-4.9); Lymphocytes Percent Auto 19.5 % (20-40); Mean Corpuscular HGB Conc 34.6 g/dl (31.0-36.0); Mean Corpuscular Hemoglobin 29.5 pg (27.0-33.0); Mean Corpuscular Volume 85.4 fL (80.0-98.0); Mean Platelet Volume 8.3 fL (9.4-12.4); Monocytes Absolute Auto 1.1 X10*3/uL (0.1-1.2); Monocytes Percent Auto 13.6 % (2-11); Neutrophils Absolute Auto 5.1 x10*3/uL (2.0-8.3); Neutrophils Percent Auto 65.5 % (45-73); Platelet Count 214 X10*3/uL (160-400); Red Blood Count 5.12 X10*6/uL (4.60-5.80); Red Cell Distribution Width 12.6 % (11.0-16.0); White Blood Count 7.7 X10*3/uL (4.8-10.8)
[2024-01-10 11:29] LABS: Prostate Specific Antigen 4.83 ng/mL (<0.05-4.0)
[2024-01-10 11:35] LABS: TSH reflex Free T4 1.47 uIU/mL (0.32-4.0); Vitamin D 25-OH Total 33.7 ng/mL (>30)
== END 2024-01-10 10:15 | disposition home or self-care (01) ==
LOC: HO.LAB 10:14
PROVIDERS: PCP Internal Medicine; Visit Provider Internal Medicine
DX: Z00.00 Encounter for general adult medical examination without abnormal findings (principal); D64.9 Anemia, unspecified; E55.9 Vitamin D deficiency, unspecified; R30.0 Dysuria; E78.00 Pure hypercholesterolemia, unspecified; N40.0 Benign prostatic hyperplasia without lower urinary tract symptoms; R73.01 Impaired fasting glucose; Z12.5 Encounter for screening for malignant neoplasm of prostate
CPT/HCPCS: 36415; 80053; 80061; 81003; 82306; 83036; 84153; 84443; 85025

== ENCOUNTER 2024-01-15 09:03 | Outpatient (AMB) | payer OTHER, SELFPAY ==
[2024-01-15 09:06] VITALS: BP 124/70; PULSE 75; O2SAT 97; BMI 30.1
--- NOTE | 2024-01-15 09:06 | A.OFFPC_ITS ---
Vital Signs 01/15/24 09:06 Height 5 ft 11 in Weight 215 lb 8 oz BMI 30.1 BP 124/70 Blood Pressure Location Lt brachial Position Sitting Pulse 75 Pulse Source Pulse Oximeter Pulse Oximetry (%) 97 Oxygen Delivery Method Room Air Intake Visit Reasons: Annual Exam Intake Note: Patient is here today for a physical. 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 Accompanied by: Self / Same As Patient Allergies No Known Allergies [No Known Allergies*] Allergy (Verified 01/15/24 09:52) Medication List - Last Reconciled 01/15/24 by Jhon Kyle MD albuterol sulfate 2.5 mg (3 mL) continuous nebulization Q4-6H PRN albuterol sulfate 90 mcg/actuation 2 puffs inhalation Q6H PRN 30 days beclomethasone dipropionate 80 mcg/actuation (Qvar RediHaler) 1 inh inhalation BID cephalexin 500 mg PO Q6H 7 days chlorthalidone 25 mg PO DAILY 90 days cholecalciferol (vitamin D3) 50 mcg PO DAILY 90 days fluticasone propionate 110 mcg/actuation (Flovent HFA) 1 puff inhalation BID 30 days loratadine 10 mg PO DAILY PRN 90 days losartan 100 mg PO DAILY 90 days methylcellulose (laxative) (Citrucel) 500 mg PO BID 30 days multivitamin 1 tab PO DAILY potassium chloride ER 20 mEq PO DAILY 90 days sildenafil 50 mg PO DAILY PRN sumatriptan 20 mg/actuation 20 mg intranasal ONCE PRN tramadol 50 mg PO TID PRN 5 days Tobacco use date assessed: 01/15/24 Dental Screening Dental Screen Date: 01/15/24 HPI Annual Exam HPI Details Patient comes in today for his annual physical examination States that he currently feels okay and that the perianal abscess that he came in for last week is almost healed up now States that the abscess opened up and started draining the day after he was seen here and started on Abx - states that he is still finishing up his Abx and has about 2 days of his Rx left He denies any headaches or dizziness Denies any chest pains, no increased SOB - states that he was experiencing some on and off coughing and congestion again recently but states that his symptoms are promptly relieved by his Albuterol inhaler and he feels that his respiratory symptoms are now starting to clear up No nausea/vomiting, no abdominal pain No change in bowel habits noted He denies any acute urinary symptoms - states that he usually has to wake up a couple of times a night to use the bathroom but he does not find this unusual as he tends to drink a lot of water often Needs a couple of his Rx refilled He had his follow up labs done a few days ago - to discuss his results He had his screening colonoscopy last done in July [address] Arevalo - he had polyps removed then that came out as tubular adenoma on pathology and he has been recommended to get his colonoscopy repeated in 3 year (2024) [facility] Medical History (Updated 01/15/24 @ 09:46 by Jhon Kyle MD) Constipation Vitamin D deficiency Overweight (BMI 25.0-29.9) Migraine Asthma Benign essential hypertension Surgical History (Updated 01/15/24 @ 09:48 by Jhon Kyle MD) Hx of colonoscopy History of hernia surgery Family History Mother Diabetes Father Diabetes High blood pressure Social History Housing: House Alcohol intake: current Alcohol intake frequency: a few times a month Alcohol type: beer Patient Tobacco Use Status: Never used Tobacco e-Cigarette/Vaping Use: Never Used Second Hand Smoke Exposure: Yes service: No Current occupational status: employed Cognitive needs: No Hearing needs: No Vision needs: No Questionnaire PHQ-9 Over the last 2 weeks, how often have you been bothered by any of the following problems? 1. Little interest or pleasure in doing things: not at all 2. Feeling down, depressed, or hopeless: not at all 3. Trouble falling or staying asleep, or sleeping too much: nearly every day 4. Feeling tired or having little energy: not at all 5. Poor appetite or overeating: not at all 6. Feeling bad about yourself - or that you are a failure or have let yourself or your family down: not at all 7. Trouble concentrating on things, such as reading the newspaper or watching television: not at all 8. Moving or speaking so slowly that other people could have noticed. Or the opposite - being so fidgety or restless that you have been moving around a lot more than usual: not at all 9. Thoughts that you would be better off or of hurting yourself in some way: not at all Total score: 3 Depression Screening Interpretation: Negative Depression Screening Done: Yes 39579 - PHQ-9 Billing: Yes Source: Developed by Drs. Ruiz Calix, Carmen Domínguez, Ramon Falcon and colleagues, with an educational evert from [employer]. Thrive Questionnaire Date Thrive assessed: 01/15/24 I am a: Patient What is your living situation today?: I choose not to answer this question Within the past 12 months, did the food you bought not last and you didn't have the money to get more?: I choose not to answer this question Within the past 12 months, did you worry whether your food would run out before you got money to buy more?: I choose not to answer this question Do you have trouble paying for medicines?: I choose not to answer this question Do you have trouble getting transportation to medical appointments?: No Do you have trouble paying your heating and electricity bill?: I choose not to answer this question Do you have trouble taking care of your child, family member or friend?: I choose not to answer this question Do you have trouble with day-to-day activities such as bathing, preparing meals, shopping, managing finances, etc.?: No Are you currently unemployed and looking for a job?: No Are you interested in more education?: No Please select the resources that you would like help with: None Currently or been in a relationship where the following occur: No concerns reported THRIVE Score: 0 AUDIT C Alcohol Use Questionnaire (AUDIT-C) 1. How often do you have a drink containing alcohol?: Never 3. How often do you have six or more drinks on one occasion?: Never Total Score: 0 Score Reviewed/Action Taken: Yes GERARDO-7 AMB Questionnaire GERARDO-7 Date GERARDO - 7 assessed: 01/15/24 Feeling nervous, anxious, or on edge: 0 = Not at all Not being able to stop or control worryin = Not at all Worrying too much about different things: 0 = Not at all Trouble relaxin = Not at all Being so restless that it is hard to sit still: 0 = Not at all Becoming easily annoyed or irritable: 0 = Not at all Feeling afraid as if something awful might happen: 0 = Not at all Total GERARDO-7 score (0-4 normal; 5-9 mild; 10-14 moderate; 15-21 severe): 0 Source: Developed by Drs. Ruiz Calix, Carmen Domínguez, Ramon Falcon and colleagues, with an educational evert from [employer]. Review of Systems Const Denies chills, Denies fatigue, Denies fever(s), Denies headache(s), Denies malaise and Denies weakness Eyes Denies blurry vision, Denies change in vision, Denies irritation and Denies itchy eyes ENT Denies dysphagia, Denies dizziness, Denies otalgia, Denies headache(s), Denies nasal congestion, Denies neck pain, Denies odynophagia and Denies sore throat Card Denies chest pain, Denies rapid heart rate, Denies irregular heart rhythm, Denies palpitations and Denies dyspnea Resp Denies chest congestion, Reports cough (on and off; relieved with Albuterol inha ler when needed - improving), Denies dyspnea and Denies wheezing GI Details: (+) cyst over the right perianal area - lesion has drained and is now almost healed/closed up Denies abdominal pain, Denies bloating, Denies constipation, Denies dysphagia, Denies heartburn, Denies diarrhea, Denies nausea, Denies odynophagia and Denies vomiting Denies hematuria, Denies difficulty urinating, Reports erectile dysfunction (Rx helping), Denies dysuria, Denies nocturia (gets up a couple of times a night but states that he drinks a lot of water), Denies urinary frequency and Denies urinary urgency Musc Denies back pain, Denies arthralgias, Denies joint swelling, Denies muscle w eakness and Denies neck pain Skin/Breast Denies change in pigmentation, Denies lesions, Denies rash and Denies unusual bruising Neuro Denies dizziness, Denies headache(s), Denies paresthesias and Denies weakness Endo Denies fatigue and Denies palpitations Aller/Immun Denies itchy eyes and Denies wheezing Physical exam (Primary Care) Vital Signs: Last Vital Signs Pulse 75 01/15/24 09:06 BP 124/70 01/15/24 09:06 Pulse Ox 97 01/15/24 09:06 Oxygen Delivery Method Room Air 01/15/24 09:06 BMI result Body Mass Index 30.1 Tobacco/Smoking Status: Tobacco use Status Tobacco use date assessed 01/15/24 01/15/24 09:08 Patient Tobacco Use Status Never used Tobacco 01/15/24 09:08 e-Cigarette/Vaping Use Never Used 01/15/24 09:08 PHQ-9: PHQ-9 Score PHQ-9: Total score 3 01/15/24 09:22 Depression Screening Interpretation: Negative Thrive Assessment: Date of Thrive Assessment Date Thrive assessed 01/15/24 01/15/24 09:08 Currently or been in a relationship where the following occur: No concerns reported Const General: no acute distress, alert and awake Orientation/consciousness: patient oriented x3 HENMT Head: Yes normocephalic and Yes atraumatic Ears: external ears normal, TM's normal bilaterally and EAC's normal General nose exam: No nasal discharge present Face and sinus: Yes normal facial exam and Yes sinuses nontender Teeth and gingiva: dentition normal Throat: Yes posterior oropharynx normal and Yes tonsils normal (no TP congestion) Eyes Eyelids: Yes eyelids normal Conjunctivae: conjunctivae normal Pupils: Equal, round and reactive pupils present EOM: EOMs intact bilaterally Neck Neck: Yes no lymphadenopathy and Yes supple Thyroid: Thyroid normal Resp Auscultation: clear to auscultation bilaterally, no rales and no wheezes Cardio Rate: regular rate Rhythm: regular rhythm Heart sounds: no murmurs GI Other: the previously noted abscess over the right perinanal area is almost healed/closed up, with NO drainage noted at present Palpation (GI): Soft to palpation, nontender and No hepatosplenomegaly present Auscultation: normal bowel sounds General: Yes no CVA tenderness Back/Spine/Pelvis Back: no CVA tenderness Thoracic/Lumbar Spine: thoracic and lumbar spine normal to inspection Skin Lesions: no lesions Rashes: no rashes Neuro General: patient oriented x3, moves all extremities, no focal motor deficits and CN's II-XI intact bilaterally Cranial nerves: Yes Equal, round and reactive pupils present Cognition (Neuro): normal cognition Gait exam (Neuro): Normal gait present Extrem General: Yes no clubbing, cyanosis or edema Results Reviewed Results Reviewed: Laboratory Tests 01/07/23 01/10/24 01/10/24 07:55 10:29 10:30 WBC 7.7 Hgb 15.1 Hct 46.0 43.7 Plt Count 214 Sodium 139 Potassium 3.8 Creatinine 0.94 Estimated GFR > 60 Fasting Glucose 116 H Hemoglobin A1c % 5.7 Calcium 10.0 AST 22 ALT 21 Triglycerides 62 Cholesterol 187 LDL Cholesterol, Calc 119 H HDL Cholesterol 56 Prostate Specific Ag 4.83 H 25-OH Vitamin D Total 33.7 TSH 1.47 Ur Specific Mayo 1.020 Urine Protein Trace Urine Glucose (UA) Negative Urine Blood Negative Urine Nitrite Negative Ur Leukocyte Esterase Negative Assessment and Plan Assessment & Plan (1) Annual physical exam: Code(s): Z00.00 - Encounter for general adult medical examination without abnormal findings Plan: Results of his labs done a few days ago reviewed and discussed with patient He is up-to-date with his colon cancer screening - had his colonoscopy done in July 2021 and was recommended to get this repeated in 3 years (2024) due to (+) tubular adenomas (2) Asthma: Code(s): J45.909 - Unspecified asthma, uncomplicated Qualifiers: Asthma severity: moderate Asthma persistence: persistent Asthma complication type: uncomplicated Qualified Code(s): J45.40 - Moderate persistent asthma, uncomplicated Plan: He appears to be experiencing some asthma flare up again recently, based on description of his symptoms Advised that these may also be due to allergies as we are heading into the fall now States that he has been using his Albuterol inhaler as needed with (+) relief of his symptoms Have advised him that he is also still on Cephalexin, which should help IF he has any respiratory infection ongoing at present Continue Qvar Redihaler 80 mcg 1 inhalation BID and Albuterol HFA 2 inhalations Q 6 hours PRN for now He is advised again to call at any time if he feels that his respiratory symptoms are flaring up or acting up more often than they should (3) Benign essential hypertension: Code(s): I10 - Essential (primary) hypertension Plan: Reinforced low sodium diet - goal is systolic BP of 120 mm or less Continue Losartan 100 mg QD and Chlorthalidone 25 mg QD; he is also still on KCl ER 20 meq QD for potassium supplement/replacement (Rx refilled) Patient is reminded to continue monitoring his blood pressure regularly (4) Impaired fasting glucose: Code(s): R73.01 - Impaired fasting glucose Plan: He is again cautioned that his FBS was still elevated at 116 mg/dl on his recent labs but his HgbA1c is still normal at 5.7% Reinforced low calorie/low carb diet We will continue to monitor his FBS and his HgbA1c regularly for follow up (5) Migraine: Code(s): G43.909 - Migraine, unspecified, not intractable, without status migrainosus Qualifiers: Migraine type: unspecified Status migrainosus presence: without status migrainosus Intractability: not intractable Qualified Code(s): G43.909 - Migraine, unspecified, not intractable, without status migrainosus Plan: Stable; reinforced avoidance of migraine triggers Continue Sumatriptan 20 mg nasal spray PRN (6) Vitamin D deficiency: Code(s): E55.9 - Vitamin D deficiency, unspecified Plan: Continue Vitamin D3 2000 units QD (7) Constipation: Code(s): K59.00 - Constipation, unspecified Qualifiers: Constipation type: unspecified constipation type Qualified Code(s): K59.00 - Constipation, unspecified Plan: Reinforced increased oral fluids and dietary fiber Continue Bisacodyl 10mg QD PRN and Miralax 17 gm QD He is also on Citrucel 500 mg BID, which helps with his bowel movements as well (8) Perianal abscess: Code(s): K61.0 - Anal abscess Plan: Resolving Continue Cephalexin 500 mg Q 6 hours until he finishes all of his prescribed Abx - states that he still has a couple of days' worth of Rx left at this time (9) Erectile dysfunction: Code(s): N52.9 - Male erectile dysfunction, unspecified Qualifiers: Erectile dysfunction type: unspecified Qualified Code(s): N52.9 - Male erectile dysfunction, unspecified Plan: Continue Sildenafil 50 mg PRN - Rx refilled (10) Elevated PSA: Code(s): R97.20 - Elevated prostate specific antigen [PSA] Plan: Have advised patient that his serum PSA level has been steadily rising over the past couple of years and is now >4.8 Advised that he should get this checked out by urology CHRISTEN - referral to urology done (11) Overweight (BMI 25.0-29.9): Code(s): E66.3 - Overweight Plan: Reinforced diet/exercise as tolerated/lose weight Plan Follow up in 6 months Orders: Orders Complete Blood Count Auto Diff 6 Months D64.9 - Anemia, unspecified Hemoglobin A1c 6 Months R73.01 - Impaired fasting glucose Lipid Panel 6 Months E78.00 - Pure hypercholesterolemia, unspecified Comprehensive [place]. Panel Fast 6 Months E78.00 - Pure hypercholesterolemia, unspecified UA CC w/rflx Micro + Cult 6 Months R30.0 - Dysuria Vitamin D 25-OH Total 6 Months E55.9 - Vitamin D deficiency, unspecified Referrals Urology Referral R97.20 - Elevated prostate specific antigen [PSA] Medications: Refilled potassium chloride ER 20 mEq PO DAILY 90 days 90 tabs 1RF I10 - Essential (primary) hypertension sildenafil administer 30 minutes to 4 hours before activity 50 mg PO DAILY PRN 10 tabs 2RF sexual activity Coding Level of Care Code Est Pt Prev Care 40-64y(34840) Diagnoses Annual physical exam Z00.00 Moderate persistent asthma without complication J45.40 Asthma severity: moderate Asthma persistence: persistent Asthma complication type: uncomplicated Benign essential hypertension I10 Impaired fasting glucose R73.01 Migraine without status migrainosus, not intractable, unspecified migraine type G43.909 Migraine type: unspecified Status migrainosus presence: without status migrainosus Intractability: not intractable Vitamin D deficiency E55.9 Constipation, unspecified constipation type K59.00 Constipation type: unspecified constipation type Perianal abscess K61.0 Erectile dysfunction, unspecified erectile dysfunction type N52.9 Erectile dysfunction type: unspecified Elevated PSA R97.20 Overweight (BMI 25.0-29.9) E66.3
== END 2024-01-15 09:56 | disposition home or self-care (01) ==
PROVIDERS: PCP Internal Medicine; Visit Provider Internal Medicine
DX: Z00.00 Encounter for general adult medical examination without abnormal findings (principal); J45.40 Moderate persistent asthma, uncomplicated; I10 Essential (primary) hypertension; R73.01 Impaired fasting glucose; G43.909 Migraine, unspecified, not intractable, without status migrainosus; E55.9 Vitamin D deficiency, unspecified; K59.00 Constipation, unspecified; K61.0 Anal abscess; N52.9 Male erectile dysfunction, unspecified; R97.20 Elevated prostate specific antigen [PSA]; E66.3 Overweight

== ENCOUNTER → 2024-01-15 09:03 | Outpatient (BNVA) | payer OTHER, SELFPAY | PROVIDERS: PCP Internal Medicine; Visit Provider Internal Medicine | DX: Z00.00 Encounter for general adult medical examination without abnormal findings (principal); J45.40 Moderate persistent asthma, uncomplicated; I10 Essential (primary) hypertension; R73.01 Impaired fasting glucose; G43.909 Migraine, unspecified, not intractable, without status migrainosus; E55.9 Vitamin D deficiency, unspecified; K59.00 Constipation, unspecified; K61.0 Anal abscess; R97.20 Elevated prostate specific antigen [PSA]; N52.9 Male erectile dysfunction, unspecified; E66.3 Overweight; Z68.30 Body mass index [BMI] 30.0-30.9, adult; Z79.899 Other long term (current) drug therapy | CPT/HCPCS: 96127 ==

== ENCOUNTER 2024-03-06 10:37 | Outpatient (AMB) | payer OTHER, SELFPAY ==
--- NOTE | 2024-03-06 10:43 | MHC.OFFVIS ---
Intake Visit Reasons: elevated PSA Intake Note: New Patient is present for Elevated PSA Urology Med: Sildenafil Antibiotic Allergy: None Blood Thinner: None PSA- 01/10/2024 4.83 Hemoglobin A1C- 5.7 Patient's PCP prescirbes Sildenafil patient would like different options of medications Patient Denies any history of Bladder or Prostate Cancer. 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 He is a patient of Dr. Kyle. He is seen for the following urologic conditions - elevated PSA - erectile dysfunction Repeat PSA and three-month Discussed no coffee morning off, sex the night before CARLOS normal Elevated PSA Slow rise over past 3 years PSA 01/18 3.5, 01/19 3.9, 01/20 4.9 Erectile dysfunction On demand sildenafil 50 mg Background hypertension, impaired fasting glucose, borderline cholesterol Has been taking 1/2 tablet Encouraged to take whole tablet PFSH Medical History Constipation Vitamin D deficiency Overweight (BMI 25.0-29.9) Migraine Asthma Benign essential hypertension Surgical History Hx of colonoscopy History of hernia surgery Family History Mother Diabetes Father Diabetes High blood pressure Social History Housing: House Alcohol intake: current Alcohol intake frequency: a few times a month Alcohol type: beer Patient Tobacco Use Status: Never used Tobacco e-Cigarette/Vaping Use: Never Used Second Hand Smoke Exposure: Yes service: No Current occupational status: employed Cognitive needs: No Hearing needs: No Vision needs: No Review of Systems Const Denies chills and Denies fever(s) Card Reports no additional complaints and Denies syncope Resp Denies cough GI Denies abdominal pain and Denies heartburn Reports as per HPI and Denies change in libido Neuro Denies syncope Psych Denies change in libido Endo Denies change in libido Physical Exam Const General: cooperative, healthy appearing, comfortable and no acute distress Orientation/consciousness: patient oriented x3 HEENT Face and sinus: Yes normal facial exam Mouth: moist mucous membranes Neck Neck: Yes normal visual inspection, Yes full ROM and Yes trachea midline Chest Chest palpation & inspection: normal inspection of the chest Resp Effort & Inspection: normal respiratory effort, able to speak in complete sentences and no respiratory distress GI Inspection: Yes normal to inspection Rectal Exam - Male: Yes normal sphincter tone and Yes prostate normal Male General Exam: Yes normal external exam Penis: normal penis and circumcised Meatus: meatus normal Scrotum: scrotum normal Testes: Testes normal Back/Spine/Pelvis Cervical Spine: normal cervical lordosis Thoracic/Lumbar Spine: thoracic and lumbar spine normal to inspection Skin General skin exam: no rashes or lesions noted Neuro General: patient oriented x3, gait normal, tone normal and moves all extremities Extrem General: Yes normal to inspection and Yes capillary refill normal Assessment & Plan Assessment & Plan (1) Erectile dysfunction: Code(s): N52.9 - Male erectile dysfunction, unspecified Category: Medical Qualifiers: Erectile dysfunction type: unspecified Qualified Code(s): N52.9 - Male erectile dysfunction, unspecified (2) Elevated PSA: Code(s): R97.20 - Elevated prostate specific antigen [PSA] Category: Medical Plan Three-month follow-up PSA Orders: Orders PSA,Total (Free>4and<10) 3 Months R97.20 - Elevated prostate specific antigen [PSA] Patient Instructions: Imaging studies, laboratory and physical exam results were discussed and reviewed in detail. No major barriers to patient understanding were identified. An opportunity to ask questions regarding the treatment plan was provided. All questions were answered. The patient expressed understanding and agreement with the above treatment plan. The patient is aware they should contact our office by phone for worsening of their current condition or the appearance of new urologic symptoms. Compliance is encouraged with any medications and followup testing that is ordered. It is a privilege to participate in the urologic care of your patient. If you have any questions or concerns regarding treatment for the above conditions, or other urologic issues, please do not hesitate to contact me. The office telephone contact is [phone]. This note is constructed using voice recognition software. While every effort has been made to ensure accuracy blanking press operator errors may have been included. Yours sincerely, Dr Nando Boyd MD, [facility] Providers of Expert, Compassionate Care for the Genitourinary System Coding Level of Care Code New Pt Level 4 ([id number]) Diagnoses Erectile dysfunction, unspecified erectile dysfunction type N52.9 Erectile dysfunction type: unspecified Elevated PSA R97.20
== END 2024-03-06 11:21 | disposition home or self-care (01) ==
PROVIDERS: PCP Internal Medicine; Visit Provider Urology
DX: N52.9 Male erectile dysfunction, unspecified (principal); R97.20 Elevated prostate specific antigen [PSA]
CPT/HCPCS: 99204

== ENCOUNTER 2024-07-13 08:55 | Outpatient (REF) | payer OTHER, SELFPAY ==
[2024-07-13 09:05] LABS: MANUAL DIFF FLAG NO
[2024-07-13 09:39] LABS: Basophils Percent Auto 0.5 % (0-2); Eosinophils Absolute Auto 0.3 X10*3/uL (0.0-0.4); Eosinophils Percent Auto 5.4 % (0-4); Hematocrit 45.6 % (42.0-52.0); Hemoglobin 15.9 g/dl (14.0-18.0); Imm Gran Abs Auto 0.01 X10*3/uL (0.00-0.03); Imm Gran Pct Auto 0.2 % (0.0-0.4); Lymphocytes Absolute Auto 2.3 X10*3/uL (1.2-4.9); Lymphocytes Percent Auto 38.9 % (20-40); Mean Corpuscular HGB Conc 34.9 g/dl (31.0-36.0); Mean Corpuscular Hemoglobin 29.3 pg (27.0-33.0); Mean Platelet Volume 8.3 fL (9.4-12.4); Monocytes Absolute Auto 0.7 X10*3/uL (0.1-1.2); Monocytes Percent Auto 11.4 % (2-11); Neutrophils Absolute Auto 2.6 x10*3/uL (2.0-8.3); Neutrophils Percent Auto 43.6 % (45-73); Platelet Count 209 X10*3/uL (160-400); Red Blood Count 5.43 X10*6/uL (4.60-5.80); Red Cell Distribution Width 12.7 % (11.0-16.0); White Blood Count 5.9 X10*3/uL (4.8-10.8)
[2024-07-13 09:51] LABS: Appearance Urine Clear; Color Urine Yellow; Glucose Urine UA Negative (Negative); Leukocyte Esterase Urine Negative (Negative); Nitrite Urine Negative (Negative); Specific Gravity - Urine 1.025 (1.005-1.025); Urine Blood Negative (Negative); Urine Ketones Trace mg/dL (Negative); Urine Protein Negative (Neg-Trace)
[2024-07-13 10:35] LABS: Alanine Aminotransferase 27 U/L (0-40); Albumin Level 4.1 g/dL (3.5-5.0); Alkaline Phosphatase 60 U/L (39-117); Anion Gap 11 (12-20); Aspartate Amino Transferase 24 U/L (5-37); Bilirubin Total 0.5 mg/dL (0.0-1.0); Blood Urea Nitrogen 14 mg/dL (9-16); Calcium 9.3 mg/dL (8.4-10.2); Carbon Dioxide 31 mmol/L (22-29); Chloride 102 mmol/L (96-108); Cholesterol 175 mg/dL (<200); Estimated Glomerular Filt Rate > 60; Glucose Fasting 96 mg/dL (60-99); HDL Cholesterol 55 mg/dL (>40); LDL Cholesterol Calculated 106 mg/dL (<100); Potassium 3.5 mmol/L (3.3-5.1); Sodium 140 mmol/L (135-145); Total Protein 7.7 g/dL (6.5-8.0); Triglycerides 74 mg/dL (<150)
[2024-07-13 10:51] LABS: Vitamin D 25-OH Total 28.2 ng/mL (>30)
[2024-07-13 10:53] LABS: PSA,Total (Free>4and<10) 4.33 ng/mL (0.00-4.00)
[2024-07-13 11:00] LABS: Estimated Average Glucose 120 mg/dL; Hemoglobin A1c % 5.8 % (<6.0)
[2024-07-15 12:08] LABS: Free Prostate Spec Ag 0.4 ng/mL; Percent Free Prostate Spec Ag 8 % (calc) (>25); Prostate Specific Ag Total 4.9 ng/mL (< OR = 4.0)
== END 2024-07-13 08:56 | disposition home or self-care (01) ==
LOC: HO.LAB 08:55
PROVIDERS: Urology; PCP Internal Medicine; Visit Provider Internal Medicine
DX: R73.01 Impaired fasting glucose (principal); E78.00 Pure hypercholesterolemia, unspecified; R30.0 Dysuria; D64.9 Anemia, unspecified; E55.9 Vitamin D deficiency, unspecified; R97.20 Elevated prostate specific antigen [PSA]; Z12.5 Encounter for screening for malignant neoplasm of prostate
CPT/HCPCS: 36415; 80053; 80061; 81003; 82306; 83036; 84153; 84154; 85025

== ENCOUNTER 2024-07-14 09:38 | Outpatient (AMB) | payer OTHER, SELFPAY ==
--- NOTE | 2024-07-14 09:43 | A.OFFPC_ITS ---
Vital Signs 07/14/24 09:44 Height 5 ft 11 in Weight 207 lb BMI 28.9 BP 128/80 Blood Pressure Location Lt brachial Position Sitting Pulse 70 Pulse Source Pulse Oximeter Pulse Oximetry (%) 99 Oxygen Delivery Method Room Air Intake Visit Reasons: 6m f/u Intake Note: Patient here for a 6 month follow up Psychological Operations Required: No Accompanied by: Self / Same As Patient Allergies No Known Allergies [No Known Allergies*] Allergy (Verified 07/14/24 10:11) Medication List - Last Reconciled 07/14/24 by Jhon Kyle MD albuterol sulfate 2.5 mg (3 mL) continuous nebulization Q4-6H PRN albuterol sulfate 90 mcg/actuation 2 puffs inhalation Q6H PRN 30 days beclomethasone dipropionate 80 mcg/actuation (Qvar RediHaler) 1 inh inhalation BID chlorthalidone 25 mg PO DAILY 90 days cholecalciferol (vitamin D3) 50 mcg PO DAILY 90 days fluticasone propionate 110 mcg/actuation (Flovent HFA) 1 puff inhalation BID 30 days loratadine 10 mg PO DAILY PRN 90 days losartan 100 mg PO DAILY 90 days methylcellulose (laxative) (Citrucel) 500 mg PO BID 30 days multivitamin 1 tab PO DAILY potassium chloride ER 20 mEq PO DAILY 90 days sildenafil 50 mg PO DAILY PRN sumatriptan 20 mg/actuation 20 mg intranasal ONCE PRN Tobacco use date assessed: 07/14/24 Dental Screening Dental Screen Date: 07/14/24 Did you have a dental visit in the last 12 months?: No Did you have a dental problem in the last 6 months where you did not have access to dental care?: No Was dental information given to patient?: Patient has dentist HPI 6m f/u HPI Details Patient comes in today for his follow up visit States that he feels okay but reports that he is still feeling a small nodule over his right perianal area where he previously had an abscess/infection States that the lesion does not hurt but he is wondering if it is okay for it to still be there months after he had the infection previously He denies any headaches or dizziness Denies any chest pains, no increased SOB No nausea/vomiting, no abdominal pain No change in bowel habits noted States that he has not noticed any blood in his stool lately Needs his Sildenafil and a couple of other Rx refilled today He had his follow up labs done yesterday - to discuss his results [facility] Medical History (Updated 07/14/24 @ 12:41 by Jhon Kyle MD) Erectile dysfunction Constipation Vitamin D deficiency Overweight (BMI 25.0-29.9) Migraine Asthma Benign essential hypertension Surgical History Hx of colonoscopy History of hernia surgery Family History Mother Diabetes Father Diabetes High blood pressure Social History Housing: House Alcohol intake: current Alcohol intake frequency: a few times a month Alcohol type: beer Patient Tobacco Use Status: Never used Tobacco e-Cigarette/Vaping Use: Never Used Second Hand Smoke Exposure: Yes service: No Current occupational status: employed Current occupational exposures/hazards: No Cognitive needs: No Hearing needs: No Vision needs: No Questionnaire PHQ-9 Over the last 2 weeks, how often have you been bothered by any of the following problems? 1. Little interest or pleasure in doing things: not at all 2. Feeling down, depressed, or hopeless: not at all 3. Trouble falling or staying asleep, or sleeping too much: not at all 4. Feeling tired or having little energy: not at all 5. Poor appetite or overeating: not at all 6. Feeling bad about yourself - or that you are a failure or have let yourself or your family down: not at all 7. Trouble concentrating on things, such as reading the newspaper or watching television: not at all 8. Moving or speaking so slowly that other people could have noticed. Or the opposite - being so fidgety or restless that you have been moving around a lot more than usual: not at all 9. Thoughts that you would be better off or of hurting yourself in some way: not at all Total score: 0 Depression Screening Interpretation: Negative Depression Screening Done: Yes 52934 - PHQ-9 Billing: Yes Source: Developed by Drs. Ruiz Calix, Carmen Domínguez, Ramon Falcon and colleagues, with an educational evert from [employer]. Thrive Questionnaire Date Thrive assessed: 07/14/24 I am a: Patient What is your living situation today?: I choose not to answer this question Within the past 12 months, did the food you bought not last and you didn't have the money to get more?: I choose not to answer this question Within the past 12 months, did you worry whether your food would run out before you got money to buy more?: I choose not to answer this question Do you have trouble paying for medicines?: I choose not to answer this question Do you have trouble getting transportation to medical appointments?: No Do you have trouble paying your heating and electricity bill?: I choose not to answer this question Do you have trouble taking care of your child, family member or friend?: I choose not to answer this question Do you have trouble with day-to-day activities such as bathing, preparing meals, shopping, managing finances, etc.?: No Are you currently unemployed and looking for a job?: No Are you interested in more education?: No Please select the resources that you would like help with: None Currently or been in a relationship where the following occur: No concerns reported THRIVE Score: 0 AUDIT C Alcohol Use Questionnaire (AUDIT-C) 1. How often do you have a drink containing alcohol?: 2-4 times a month 2. How many drinks containing alcohol do you have on a typical day when you are drinking?: 7 to 9 3. How often do you have six or more drinks on one occasion?: Weekly Total Score: 8 Score Reviewed/Action Taken: Yes (Patient is encouraged to at least cut back on his drinking) GERARDO-7 AMB Questionnaire GERARDO-7 Date GERARDO - 7 assessed: 07/14/24 Feeling nervous, anxious, or on edge: 0 = Not at all Not being able to stop or control worryin = Not at all Worrying too much about different things: 0 = Not at all Trouble relaxin = Not at all Being so restless that it is hard to sit still: 0 = Not at all Becoming easily annoyed or irritable: 0 = Not at all Feeling afraid as if something awful might happen: 0 = Not at all Total GERARDO-7 score (0-4 normal; 5-9 mild; 10-14 moderate; 15-21 severe): 0 Source: Developed by Drs. Ruiz Calix, Carmen Domínguez, Ramon Falcon and colleagues, with an educational evert from [employer]. Review of Systems Const Denies chills, Denies fatigue, Denies fever(s) and Denies headache(s) ENT Denies dysphagia, Denies dizziness, Denies otalgia, Denies headache(s), Denies neck pain, Denies odynophagia and Denies sore throat Card Denies chest pain, Denies irregular heart rhythm, Denies palpitations and Denies dyspnea Resp Denies chest congestion and Denies dyspnea GI Details: (+) cyst over the right perianal area - lesion has drained and is now almost healed/closed up Denies abdominal pain, Denies constipation, Denies dysphagia, Denies heartburn, Denies diarrhea, Denies nausea, Denies odynophagia and Denies vomiting Denies difficulty urinating, Reports erectile dysfunction (Rx helping), Denies dysuria, Denies nocturia (gets up a couple of times a night but states that he drinks a lot of water) and Denies urinary frequency Musc Denies back pain, Denies arthralgias and Denies neck pain Skin/Breast Denies rash Neuro Denies dizziness, Denies headache(s) and Denies paresthesias Endo Denies fatigue and Denies palpitations Physical exam (Primary Care) Vital Signs: Last Vital Signs Pulse 70 07/14/24 09:44 BP 128/80 07/14/24 09:44 Pulse Ox 99 07/14/24 09:44 Oxygen Delivery Method Room Air 07/14/24 09:44 BMI result Body Mass Index 28.9 Tobacco/Smoking Status: Tobacco use Status Tobacco use date assessed 07/14/24 07/14/24 09:52 Patient Tobacco Use Status Never used Tobacco 07/14/24 09:52 e-Cigarette/Vaping Use Never Used 07/14/24 09:52 PHQ-9: PHQ-9 Score PHQ-9: Total score 0 07/14/24 10:21 Depression Screening Interpretation: Negative Thrive Assessment: Date of Thrive Assessment Date Thrive assessed 07/14/24 07/14/24 09:52 Currently or been in a relationship where the following occur: No concerns reported Const General: no acute distress and alert HENMT Ears: TM's normal bilaterally and EAC's normal Throat: Yes posterior oropharynx normal and Yes tonsils normal (no TP congestion) Neck Neck: Yes supple and No lymphadenopathy Thyroid: Thyroid normal Resp Auscultation: clear to auscultation bilaterally, no rales and no wheezes Cardio Rate: regular rate Rhythm: regular rhythm Heart sounds: no murmurs GI Other: (+) large non-thrombosed external hemorrhoid noted; (+) small, palpable, non- tender nodular lesion over the right perianal area where he previously had a perianal abscess/infection Palpation (GI): Soft to palpation and nontender Auscultation: normal bowel sounds General: Yes no CVA tenderness Back/Spine/Pelvis Back: no CVA tenderness Thoracic/Lumbar Spine: No lumbar spinal tenderness Skin Rashes: no rashes Extrem General: Yes no clubbing, cyanosis or edema Results Reviewed Results Reviewed: Laboratory Tests 01/10/24 07/13/24 07/13/24 10:30 09:00 09:04 WBC 5.9 Hgb 15.9 Hct 45.6 Plt Count 209 Sodium 140 Potassium 3.5 Creatinine 0.92 Estimated GFR > 60 Fasting Glucose 96 Hemoglobin A1c % 5.8 Calcium 9.3 D AST 24 ALT 27 Triglycerides 62 74 Cholesterol 187 175 LDL Cholesterol, Calc 119 H 106 H HDL Cholesterol 56 55 Total PSA 4.33 H 25-OH Vitamin D Total 28.2 L Ur Specific [place] 1.025 Urine Protein Negative Urine Glucose (UA) Negative Urine Blood Negative Urine Nitrite Negative Ur Leukocyte Esterase Negative Coding Level of Care Code Est Pt Level 4 (00818) Diagnoses Benign essential hypertension I10 Moderate persistent asthma without complication J45.40 Asthma severity: moderate Asthma persistence: persistent Asthma complication type: uncomplicated Impaired fasting glucose R73.01 Migraine without status migrainosus, not intractable, unspecified migraine type G43.909 Migraine type: unspecified Status migrainosus presence: without status migrainosus Intractability: not intractable Vitamin D deficiency E55.9 Constipation, unspecified constipation type K59.00 Constipation type: unspecified constipation type Erectile dysfunction, unspecified erectile dysfunction type N52.9 Erectile dysfunction type: unspecified Cyst of perianal area K62.89 External hemorrhoids K64.4 Overweight (BMI 25.0-29.9) E66.3 Additional Codes PHQ-9 - 64493 - PHQ-9 Billing: Yes ([id number]) Assessment & Plan Assessment & Plan (1) Benign essential hypertension: Code(s): I10 - Essential (primary) hypertension Category: Medical Plan: Reinforced low sodium diet - goal is systolic BP of 120 mm or less Continue Losartan 100 mg QD and Chlorthalidone 25 mg QD; he is also on KCl ER 20 meq QD for potassium supplement/replacement Patient is reminded to continue monitoring his blood pressure regularly (2) Asthma: Code(s): J45.909 - Unspecified asthma, uncomplicated Category: Medical Qualifiers: Asthma severity: moderate Asthma persistence: persistent Asthma complication type: uncomplicated Qualified Code(s): J45.40 - Moderate persistent asthma, uncomplicated Plan: His asthma appears much better controlled lately Continue Qvar Redihaler 80 mcg 1 inhalation BID and Albuterol HFA 2 inhalations Q 6 hours PRN (3) Impaired fasting glucose: Code(s): R73.01 - Impaired fasting glucose Category: Medical Plan: His HgbA1c remains normal at 5.8% on his recent labs (was at 5.7% previously); FBS was also normal on his recent labs at 96 mg/dl Reinforced low calorie/low carb diet, exercise as tolerated, lose weight We will continue to monitor his FBS and his HgbA1c regularly for follow up (4) Migraine: Code(s): G43.909 - Migraine, unspecified, not intractable, without status migrainosus Category: Medical Qualifiers: Migraine type: unspecified Status migrainosus presence: without status migrainosus Intractability: not intractable Qualified Code(s): G43.909 - Migraine, unspecified, not intractable, without status migrainosus Plan: Stable; reinforced avoidance of migraine triggers Continue Sumatriptan 20 mg nasal spray PRN (5) Vitamin D deficiency: Code(s): E55.9 - Vitamin D deficiency, unspecified Category: Medical Plan: He is advised that his Votamin D level was still slightly low on his recent labs Continue Vitamin D3 2000 units QD (6) Constipation: Code(s): K59.00 - Constipation, unspecified Category: Medical Qualifiers: Constipation type: unspecified constipation type Qualified Code(s): K59.00 - Constipation, unspecified Plan: Reinforced increased oral fluids and dietary fiber Continue Bisacodyl 10mg QD PRN and Miralax 17 gm QD He is also on Citrucel 500 mg BID, which should help with his bowel movements as well (7) Erectile dysfunction: Code(s): N52.9 - Male erectile dysfunction, unspecified Category: Medical Qualifiers: Erectile dysfunction type: unspecified Qualified Code(s): N52.9 - Male erectile dysfunction, unspecified Plan: Continue Sildenafil 50 mg PRN - Rx refilled (8) Cyst of perianal area: Code(s): K62.89 - Other specified diseases of anus and rectum Category: Medical Plan: Will refer him to surgery for further evaluation and recommendations regarding the persistent cyst/nodule over his right perianal area, especially as to whether there are any concerns for potential reinfection in the future or whether any Bx is needed or indicated (9) External hemorrhoids: Code(s): K64.4 - Residual hemorrhoidal skin tags Category: Medical Plan: Have advised patient that at this time, his external hemorrhoids are non-thro mbosed and no further intervention is needed at present As he is being referred to surgery for evaluation of his right perianal nodule, will also have surgery see him for these for any further recommendations He is also due for repeat colonoscopy this year and already has a follow up appointment with GI coming up in a couple of weeks (10) Overweight (BMI 25.0-29.9): Code(s): E66.3 - Overweight Category: Medical Plan: Reinforced diet/exercise as tolerated/lose weight Plan To return as scheduled in 6 months for his next annual physical examination Orders: Orders Complete Blood Count Auto Diff 6 Months D64.9 - Anemia, unspecified, Z00.00 - Encounter for general adult medical examination without abnormal findings Lipid Panel 6 Months E78.00 - Pure hypercholesterolemia, unspecified, Z00.00 - Encounter for general adult medical examination without abnormal findings TSH reflex Free T4 6 Months E78.00 - Pure hypercholesterolemia, unspecified, Z00.00 - Encounter for general adult medical examination without abnormal findings UA CC w/rflx Micro + Cult 6 Months R30.0 - Dysuria, Z00.00 - Encounter for general adult medical examination without abnormal findings Comprehensive [place]. Panel Fast 6 Months E78.00 - Pure hypercholesterolemia, unspecified, Z00.00 - Encounter for general adult medical examination without abnormal findings Referrals General Surgery Referral K62.89 - Other specified diseases of anus and rectum, K64.4 - Residual hemorrhoidal skin tags Medications: Refilled sildenafil administer 30 minutes to 4 hours before activity 50 mg PO DAILY PRN 10 tabs 2RF sexual activity beclomethasone dipropionate 80 mcg/actuation (Qvar RediHaler) 1 inh inhalation BID 10.6 grams 3RF cholecalciferol (vitamin D3) 50 mcg PO DAILY 90 days 90 caps 3RF E55.9 - Vitamin D deficiency, unspecified
[2024-07-14 09:44] VITALS: BP 128/80; PULSE 70; O2SAT 99; BMI 28.9
== END 2024-07-14 10:27 | disposition home or self-care (01) ==
LOC: HO.HMCH 09:38
PROVIDERS: PCP Internal Medicine; Visit Provider Internal Medicine
DX: I10 Essential (primary) hypertension (principal); J45.40 Moderate persistent asthma, uncomplicated; R73.01 Impaired fasting glucose; G43.909 Migraine, unspecified, not intractable, without status migrainosus; E55.9 Vitamin D deficiency, unspecified; K59.00 Constipation, unspecified; N52.9 Male erectile dysfunction, unspecified; K62.89 Other specified diseases of anus and rectum; K64.4 Residual hemorrhoidal skin tags; E66.3 Overweight

== ENCOUNTER → 2024-07-14 09:38 | Outpatient (BNVA) | payer OTHER, SELFPAY | PROVIDERS: PCP Internal Medicine; Visit Provider Internal Medicine | DX: I10 Essential (primary) hypertension (principal); J45.40 Moderate persistent asthma, uncomplicated; R73.01 Impaired fasting glucose; G43.909 Migraine, unspecified, not intractable, without status migrainosus; E55.9 Vitamin D deficiency, unspecified; K59.00 Constipation, unspecified; N52.9 Male erectile dysfunction, unspecified; K62.89 Other specified diseases of anus and rectum; K64.4 Residual hemorrhoidal skin tags; E66.3 Overweight; Z68.28 Body mass index [BMI] 28.0-28.9, adult; Z79.899 Other long term (current) drug therapy | CPT/HCPCS: 96127 ==

== ENCOUNTER 2024-07-28 09:37 | Outpatient (REF) | payer OTHER, SELFPAY ==
[2024-07-28 11:43] LABS: PSA,Total (Free>4and<10) 4.51 ng/mL (0.00-4.00)
[2024-07-29 13:34] LABS: Free Prostate Spec Ag 0.3 ng/mL; Percent Free Prostate Spec Ag 7 % (calc) (>25); Prostate Specific Ag Total 4.5 ng/mL (< OR = 4.0)
== END 2024-07-28 09:38 | disposition home or self-care (01) ==
LOC: HO.LAB 09:37
PROVIDERS: PCP Internal Medicine; Visit Provider Urology
DX: R97.20 Elevated prostate specific antigen [PSA] (principal); N52.9 Male erectile dysfunction, unspecified; Z12.5 Encounter for screening for malignant neoplasm of prostate
CPT/HCPCS: 36415; 84153; 84154

== ENCOUNTER 2024-08-06 08:15 | Outpatient (AMB) | payer OTHER, SELFPAY ==
--- NOTE | 2024-08-06 08:18 | A.OFFVIS_ITS ---
Vital Signs 08/06/24 08:26 Height 5 ft 11 in Weight 213 lb BMI 29.7 BP 155/91 H Blood Pressure Location Rt brachial Position Sitting Pulse 72 Intake Visit Reasons: (R) perianal area cyst & large ext hemorrhoids Intake Note: Patient referred by pcp Dr. Kyle for nodule on Rt perineal area. Hx of cyst on same area. 2nd concern external hemorrhoids using cream purchased in [facility]. Patient c/o: growth bothersome. Enlarging, feels firm. Colonoscopy w/ Dr. 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: No Accompanied by: Self / Same As Patient Allergies No Known Allergies [No Known Allergies*] Allergy (Verified 08/06/24 08:25) Medication List - Last Reconciled 08/06/24 by Ousmane Reagan MD albuterol sulfate 2.5 mg (3 mL) continuous nebulization Q4-6H PRN albuterol sulfate 90 mcg/actuation 2 puffs inhalation Q6H PRN 30 days beclomethasone dipropionate 80 mcg/actuation (Qvar RediHaler) 1 inh inhalation BID chlorthalidone 25 mg PO DAILY 90 days cholecalciferol (vitamin D3) 50 mcg PO DAILY 90 days fluticasone propionate 110 mcg/actuation (Flovent HFA) 1 puff inhalation BID 30 days loratadine 10 mg PO DAILY PRN 90 days losartan 100 mg PO DAILY 90 days methylcellulose (laxative) (Citrucel) 500 mg PO BID 30 days multivitamin 1 tab PO DAILY potassium chloride ER 20 mEq PO DAILY 90 days sildenafil 50 mg PO DAILY PRN HPI HPI (R) perianal area cyst & large ext hemorrhoids: Details: 59-year-old male, referred for a ?perianal cyst?. He says that he has had this area of swelling and frequent drainage and tenderness on the right side of his anus. This has been going on for about 6 months now. He says that he has severe tenderness when this become swollen. He says that this has been draining periodically as well. He also says that she has had hemorrhoid on the area away from this. He says he is healthy overall. [facility] Medical History Erectile dysfunction Constipation Vitamin D deficiency Overweight (BMI 25.0-29.9) Migraine Asthma Benign essential hypertension Surgical History Hx of colonoscopy History of hernia surgery Family History Mother Diabetes Father Diabetes High blood pressure Social History Housing: House Alcohol intake: current Alcohol intake frequency: a few times a month Alcohol type: beer Patient Tobacco Use Status: Never used Tobacco e-Cigarette/Vaping Use: Never Used Second Hand Smoke Exposure: Yes service: No Current occupational status: employed Current occupational exposures/hazards: No Cognitive needs: No Hearing needs: No Vision needs: No Review of Systems Const Denies chills and Denies fever(s) Card Denies chest pain, Denies dyspnea and Denies dyspnea on exertion Resp Denies cough, Denies dyspnea and Denies dyspnea on exertion GI Denies hematochezia and Denies change in bowel habits Denies hematuria and Denies difficulty urinating Musc Denies back pain and Denies limited range of motion Neuro Denies focal weakness and Denies convulsions Psych Denies depression and Denies mood swings Physical Exam Vital Signs: Last Vital Signs Pulse 72 08/06/24 08:26 BP 155/91 H 08/06/24 08:26 BMI result Body Mass Index 29.7 Const General: comfortable and no acute distress Orientation/consciousness: patient oriented x3 Neck Neck: Yes no lymphadenopathy Resp Auscultation: clear to auscultation bilaterally Cardio Rhythm: regular rhythm GI Other: Rectal exam shows an external hemorrhoid on the left, moderate-sized, nontender On the right perianal area just about 2.5 cm from the anal verge is note of 2 sinuses, with a hypergranulation, tenderness and scanty drainage, highly suggestive of a fistula Palpation (GI): Soft to palpation, nontender and no guarding Neuro General: patient oriented x3 Office Procedures Anoscopy He was in lucio-knife position. The anoscope was gently inserted a full examination of the anal canal was done. There was note of some small internal hemorrhoids. He had not identify an obvious internal fistulous opening. There was no fissure or any other lesions. There was no bleeding. [id number] Assessment & Plan Assessment & Plan (1) Perianal abscess: Code(s): K61.0 - Anal abscess Category: Medical Plan: He has this area of recurrent swelling, pain and discharge on the right side of his anus. Examination of overall clinical picture is highly suggestive of an anal fistula. I therefore explained to him the option of proceeding with exam under anesthesia and possible fistulotomy or seton placement. I explained the technique of this procedure. I reviewed the risks including but not limited to bleeding, infections, poor healing, postop pain, sphincter dysfunction, as well as the benefits and alternatives. I also explained to him what to expect postoperatively He wants to proceed He has this external hemorrhoidal column on the left. He says that this is not bothering him currently and states that he does not really want to have this excised at this time. He says he wants to take care of the recurrent area of swelling on the right side for now. Coding Level of Care Code New Pt Level 3 (83022) Diagnoses Perianal abscess K61.0 CPT Codes Details - CPT: 42777-[id number] ([id number])
[2024-08-06 08:26] VITALS: BP 155/91; PULSE 72; BMI 29.7
== END 2024-08-06 08:34 | disposition home or self-care (01) ==
LOC: HO.HGS 08:16
PROVIDERS: PCP Internal Medicine; Visit Provider Surgery
DX: K61.0 Anal abscess (principal); K64.8 Other hemorrhoids
CPT/HCPCS: 46600; 99204

== ENCOUNTER → 2024-08-06 08:15 | Outpatient (BNVA) | payer OTHER, SELFPAY | PROVIDERS: PCP Internal Medicine; Visit Provider Surgery | DX: K61.0 Anal abscess (principal) | CPT/HCPCS: 46600 ==

== ENCOUNTER 2024-08-11 10:11 | Outpatient (AMB) | payer OTHER, SELFPAY ==
--- NOTE | 2024-08-11 10:45 | MHC.OFFVIS ---
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 He is a patient of Dr. Kyle. He is seen for the following urologic conditions - elevated PSA - erectile dysfunction PSA remains elevated Recommend prostate biopsy Elevated PSA Slow rise over past 3 years PSA 01/18 3.5, 01/19 3.9, 01/20 4.9, 08/21 4.5 7% Erectile dysfunction On demand sildenafil 50 mg Background hypertension, impaired fasting glucose, borderline cholesterol Has been taking 1/2 tablet Encouraged to take whole tablet PFSH Medical History Erectile dysfunction Constipation Vitamin D deficiency Overweight (BMI 25.0-29.9) Migraine Asthma Benign essential hypertension Surgical History Hx of colonoscopy History of hernia surgery Family History Mother Diabetes Father Diabetes High blood pressure Social History Housing: House Alcohol intake: current Alcohol intake frequency: a few times a month Alcohol type: beer Patient Tobacco Use Status: Never used Tobacco e-Cigarette/Vaping Use: Never Used Second Hand Smoke Exposure: Yes service: No Current occupational status: employed Current occupational exposures/hazards: No Cognitive needs: No Hearing needs: No Vision needs: No Review of Systems Const Denies chills and Denies fever(s) Card Reports no additional complaints and Denies syncope Resp Denies cough GI Denies abdominal pain and Denies heartburn Reports as per HPI and Denies change in libido Neuro Denies syncope Psych Denies change in libido Endo Denies change in libido Physical Exam Const General: cooperative, healthy appearing, comfortable and no acute distress Orientation/consciousness: patient oriented x3 HEENT Face and sinus: Yes normal facial exam Mouth: moist mucous membranes Neck Neck: Yes normal visual inspection, Yes full ROM and Yes trachea midline Chest Chest palpation & inspection: normal inspection of the chest Resp Effort & Inspection: normal respiratory effort, able to speak in complete sentences and no respiratory distress GI Inspection: Yes normal to inspection Back/Spine/Pelvis Cervical Spine: normal cervical lordosis Thoracic/Lumbar Spine: thoracic and lumbar spine normal to inspection Skin General skin exam: no rashes or lesions noted Neuro General: patient oriented x3, gait normal, tone normal and moves all extremities Extrem General: Yes normal to inspection and Yes capillary refill normal Assessment & Plan Assessment & Plan (1) Elevated PSA: Code(s): R97.20 - Elevated prostate specific antigen [PSA] Category: Medical Plan Risks and benefits regarding trans rectal ultrasound with prostate biopsy were discussed. Options of continued surveillance, no treatment and biopsy were offered. The risks include but are not limited to, urinary tract infection, sepsis, difficulty urinating, bleeding into the rectum or bladder that requires intervention and transfusion,and failure to diagnose prostate cancer. The patient understands the options and the risks involved. They wish to proceed. Printed information was provided to ensure he remains off anticoagulation for the appropriate length of time. He may require cardiology or PCP clearance. An antibiotic will be administered prior to, and following the procedure Medications: New levofloxacin take 1 tablet day before procedure, 1 tablet day of procedure and 1 tablet day after procedure 500 mg PO DAILY 3 days 3 tabs 0RF R97.20 - Elevated prostate specific antigen [PSA] Patient Instructions: This note is constructed using voice recognition software. While every effort has been made to ensure accuracy manager statistical programming errors may have been included. Imaging studies, laboratory and physical exam results were discussed and reviewed in detail. No major barriers to patient understanding were identified. An opportunity to ask questions regarding the treatment plan was provided. All questions were answered. The patient expressed understanding and agreement with the above treatment plan. The patient is aware they should contact our office by phone for worsening of their current condition or the appearance of new urologic symptoms. Compliance is encouraged with any medications and followup testing that is ordered. It is a privilege to participate in the urologic care of your patient. If you have any questions or concerns regarding treatment for the above conditions, or other urologic issues, please do not hesitate to contact me. The office telephone contact is [phone]. Sincerely, Dr Nando Boyd MD, [facility] - Urology Compassionate Specialist Care for the Genitourinary System Coding Level of Care Code Est Pt Level 4 (67147) Diagnoses Elevated PSA R97.20
== END 2024-08-11 11:20 | disposition home or self-care (01) ==
LOC: HO.HUSH 10:11
PROVIDERS: PCP Internal Medicine; Visit Provider Urology
DX: R97.20 Elevated prostate specific antigen [PSA] (principal)
CPT/HCPCS: 99214

== ENCOUNTER 2024-08-18 07:45 | Day surgery (SDC) | payer OTHER, SELFPAY ==
--- NOTE | 2024-08-13 15:30 | HO.ANESPROP2 ---
Documented by User: Mell Kapadia NP 08/13/24 15:31 HPI - Anesthesia Eval Consult details Narrative: 59yo M for EUA, poss seton placement, Fistulotomy PMFSH Active Problems Active Problems: All Active Problems Cyst of perianal area (Acute) External hemorrhoids (Acute) Elevated PSA (Acute) Perianal abscess (Acute) Asthma exacerbation (Acute) Impaired fasting glucose (Acute) Erectile dysfunction (Acute) Tubular adenoma (Acute) Hemorrhoids (Acute) Diverticulosis of colon (Acute) Constipation (Acute) Vitamin D deficiency (Acute) Colon cancer screening (Acute) Overweight (BMI 25.0-29.9) (Acute) Migraine (Acute) Asthma (Acute) Benign essential hypertension (Acute) Annual physical exam (Acute) Past Medical History Medical History Erectile dysfunction Constipation Vitamin D deficiency Overweight (BMI 25.0-29.9) Migraine Asthma Benign essential hypertension Family History Family History Mother Diabetes Father Diabetes High blood pressure Family history of problems with anesthesia: No Surgical History Surgical History Hx of colonoscopy History of hernia surgery History of Problems with Anesthesia: No Social History Social History Housing: House Are you a primary resident care director to a significant other at home: No Do you presently have visiting nurse or other home services: No Alcohol intake: current Alcohol intake frequency: holidays/special occasions only Alcohol type: beer Patient Tobacco Use Status: Never used Tobacco e-Cigarette/Vaping Use: Never Used Second Hand Smoke Exposure: Yes Use of substances other than those prescribed or required for medical reasons: No Have you been hit, kicked, punched, or otherwise hurt by someone within the past year? If so, by whom?: No Are you DNR?: No Advance Directives: No Advance Directives Information Provided: Yes Poor oral hygiene: No service: No Current occupational status: employed Current occupational exposures/hazards: No Cognitive needs: No Hearing needs: No Vision needs: No Meds Allergies Allergy/AdvReac Type Severity Reaction Status Date / Time No Known Allergies Allergy Verified 08/18/24 08:14 [No Known Allergies*] Home Medications ?Medication ?Instructions ?Recorded ?Confirmed ?Last Taken ?Type multivitamin 1 tab PO DAILY 12/21/20 08/18/24 Unknown History Assessment and Plan Assessment Anesthesia Assessment: Chart Reviewed Final Anesthetic Review Family History of Problems with Anesthesia: No History of Problems with Anesthesia: No Documented by User: Jose M Stout MD 08/18/24 09:33 PMFSH Past Medical History Medical History Erectile dysfunction Constipation Vitamin D deficiency Overweight (BMI 25.0-29.9) Migraine Asthma Benign essential hypertension Family History Family History Mother Diabetes Father Diabetes High blood pressure Surgical History Surgical History Hx of colonoscopy History of hernia surgery Social History Social History Housing: House Are you a primary resident care director to a significant other at home: No Do you presently have visiting nurse or other home services: No Alcohol intake: current Alcohol intake frequency: holidays/special occasions only Alcohol type: beer Patient Tobacco Use Status: Never used Tobacco e-Cigarette/Vaping Use: Never Used Second Hand Smoke Exposure: Yes Use of substances other than those prescribed or required for medical reasons: No Have you been hit, kicked, punched, or otherwise hurt by someone within the past year? If so, by whom?: No Are you DNR?: No Advance Directives: No Advance Directives Information Provided: Yes Poor oral hygiene: No service: No Current occupational status: employed Current occupational exposures/hazards: No Cognitive needs: No Hearing needs: No Vision needs: No Meds Allergies Allergy/AdvReac Type Severity Reaction Status Date / Time No Known Allergies Allergy Verified 08/18/24 08:14 [No Known Allergies*] Home Medications ?Medication ?Instructions ?Recorded ?Confirmed ?Last Taken ?Type multivitamin 1 tab PO DAILY 12/21/20 08/18/24 Unknown History Exam Airway Mallampati Class: II TM Dist: <=3cm Neck ROM: Full Loose/Missing/Broken Teeth: No Heart: ok Lungs: ok Assessment and Plan Assessment Anesthesia Assessment: Anesthesia Plan Discussed Final Anesthetic Review NPO: Yes ASA Class: II Final Preanesthetic Review: No Changes in Pt Med Stat, Meds/Allgs Chart Reviewed, Consent Obtained/Reviewed and Anes Risks/Benef Reviewed Patient Risk: Intermediate Procedure Risk: Intermediate Anesthetic Plan Anesthetic Plan: GA and Agree w/ Assess. and Plan Disposition: Standard PACU
[2024-08-18 08:33] VITALS: BP 136/83; PULSE 70; RESP 14; TEMP 36.6; O2SAT 99; BMI 29.2
[2024-08-18] MEDS: Lactated Ringers 1,000 ML 100 ML IVCONT (08:37)
--- NOTE | 2024-08-18 09:18 | MHC.SHP ---
Pre-Procedural Eval Section A - 24 Hr Update-Section A only Date of Service: 08/18/24 The patient is an INPATIENT: No Changes since office visit: No Cold of Flu in the past 2 weeks, No New Medical Problems, No Changes in Medication and No Patient answered all questions The patient has been examined within 24 hours of the surgical procedure. The History & Physical has been completed within 30 days and I have reviewed it.: Yes Section B - Complete if H&P > 30 days Chief Complaint: Anal abscess Allergies: Allergies Allergy/AdvReac Type Severity Reaction Status Date / Time No Known Allergies Allergy Verified 08/18/24 08:14 [No Known Allergies*] Plan I have reviewed the history and physical and performed a pertinent physical examination on my patient. No changes have occurred unless specified. Time Spent With Patient Time: Total time managing care of this patient today ____ minutes.
[2024-08-18] MEDS: cefoTEtan disodium 2 GM VIAL IVPUSH (09:42)
[2024-08-18 10:17] VITALS: BP 115/77; PULSE 65; RESP 15; TEMP 36.4; O2SAT 96
[2024-08-18 10:22] VITALS: BP 112/67; PULSE 61; RESP 20; O2SAT 96
--- NOTE | 2024-08-18 10:26 | W.PM.OPN ---
Operative Note Operative Note Date of Service: 08/18/24 Narrative: Preop diagnosis: Fistula in anol Postop diagnosis: The same Procedure: Exam under anesthesia, seton placement and partial fistulotomy Surgeon: Ousmane Reagan MD The patient is a 59-year-old male with an area of recurrent swelling and drainage near the anus. This was consistent with the anal fistula. He was sent the technique of exam under anesthesia and seton placement and fistulotomy. He was aware of the risks, benefits, and alternatives. He was brought to the operating room. He was placed in prone lucio-knife position under general anesthesia via laryngeal mask airway. He received Cefotan preoperatively. The buttocks were retracted with wide tape laterally. The perianal area was prepped and draped in usual sterile fashion. A surgical time-out was done Examination of the anal orifice showed what appeared to be an external fistulous opening on the right posterior area with induration and dimpling. I infiltrated the perianal area with lidocaine 1%. I inserted the Nora Stallings retractor. I examined the anal canal circumferentially. There were no lesions seen in the anal canal. However, there was note of an internal fistulous opening at the dentate line radially from the fistulous opening I was able to pass a probe easily from the external sinus to the internal sinus. I passed a yellow vessel loop as a seton using this probe. I loop the probe around this fistula tract and closed this with a silk 2-0 tie I shortened the fistula tract by incising the skin over the external fistulous tract up to the sphincter I infiltrated the perianal area with Marcaine 0.5% for postop analgesia The procedure was then completed The patient tolerated procedure well. There were no immediate complications He was extubated and transferred to the recovery room with stable vital signs
[2024-08-18 10:27] VITALS: BP 118/67; PULSE 65; RESP 20; O2SAT 96
[2024-08-18 10:32] VITALS: BP 119/78; PULSE 62; RESP 20; O2SAT 96
[2024-08-18] MEDS: oxyCODONE HCl Immed Release 5 MG TABLET PO (10:41)
[2024-08-18] MEDS: Acetaminophen 325 MG TABLET 975 MG PO (10:42)
[2024-08-18 10:47] VITALS: BP 130/89; PULSE 65; RESP 20; TEMP 36.8; O2SAT 97
== END 2024-08-18 11:20 | disposition home or self-care (01) ==
PROVIDERS: PCP Internal Medicine; Visit Provider Surgery
PROC: (CPT 46020; principal; 2024-08-18 09:50)
DX: K60.30 Anal fistula, unspecified (principal); K64.4 Residual hemorrhoidal skin tags; N52.9 Male erectile dysfunction, unspecified; K59.00 Constipation, unspecified; E66.3 Overweight; Z68.29 Body mass index [BMI] 29.0-29.9, adult; E55.9 Vitamin D deficiency, unspecified; I10 Essential (primary) hypertension; J45.909 Unspecified asthma, uncomplicated; Z79.51 Long term (current) use of inhaled steroids; Z79.899 Other long term (current) drug therapy; Z98.890 Other specified postprocedural states
CPT/HCPCS: 46020; J2003; J2704; J2795; J3010

== ENCOUNTER → 2024-08-18 07:45 | Outpatient (BNV) | payer OTHER, SELFPAY | PROVIDERS: PCP Internal Medicine; Visit Provider Surgery | DX: K60.30 Anal fistula, unspecified (principal) | CPT/HCPCS: 46280 ==

== ENCOUNTER 2024-08-31 13:16 | Outpatient (AMB) | payer OTHER, SELFPAY ==
[2024-08-31 13:18] VITALS: BP 145/78; PULSE 70; O2SAT 98; BMI 29.6
--- NOTE | 2024-08-31 13:18 | MHC.OFFVIS ---
Vital Signs 08/31/24 13:18 Height 5 ft 11 in Weight 212 lb 8.41 oz BMI 29.6 BP 145/78 H Blood Pressure Location Lt brachial Position Sitting Pulse 70 Pulse Source Pulse Oximeter Pulse Oximetry (%) 98 Oxygen Delivery Method Room Air Intake Visit Reasons: S/P EUA, poss seton placement, fistulotomy Intake Note: Patient here s/p seton placement and partial fistulotomy. Reports incision healing well. Patient c/o:none Surgery: 08-18-2024 Allergies No Known Allergies [No Known Allergies*] Allergy (Verified 08/31/24 13:21) HPI HPI S/P EUA, poss seton placement, fistulotomy: Details: He underwent seton placement and partial fistulotomy last 08/18/2024. He tolerated procedure well. He currently denies significant complaints. He does admit to pain on the surgical site. [facility] Medical History (Updated 08/31/24 @ 13:23 by Ousmane Reagan MD) Anal fistula Erectile dysfunction Constipation Vitamin D deficiency Overweight (BMI 25.0-29.9) Migraine Asthma Benign essential hypertension Surgical History Hx of colonoscopy History of hernia surgery Family History Mother Diabetes Father Diabetes High blood pressure Social History Housing: House Are you a primary career development specialist to a significant other at home: No Do you presently have visiting nurse or other home services: No Alcohol intake: current Alcohol intake frequency: holidays/special occasions only Alcohol type: beer Comment: medicated Patient Tobacco Use Status: Never used Tobacco e-Cigarette/Vaping Use: Never Used Second Hand Smoke Exposure: Yes service: No Current occupational status: employed Current occupational exposures/hazards: No Cognitive needs: No Hearing needs: No Vision needs: No Review of Systems Const Denies chills and Denies fever(s) Card Denies chest pain, Denies dyspnea and Denies dyspnea on exertion Resp Denies cough, Denies dyspnea and Denies dyspnea on exertion GI Denies hematochezia and Denies change in bowel habits Denies hematuria and Denies difficulty urinating Musc Denies back pain and Denies limited range of motion Neuro Denies focal weakness and Denies convulsions Psych Denies depression and Denies mood swings Physical Exam Vital Signs: Last Vital Signs Pulse 70 08/31/24 13:18 BP 145/78 H 08/31/24 13:18 Pulse Ox 98 08/31/24 13:18 Oxygen Delivery Method Room Air 08/31/24 13:18 BMI result Body Mass Index 29.6 Const General: comfortable and no acute distress Resp Effort & Inspection: normal respiratory effort GI Other: Rectal exam shows the seton to be in place, no evidence of any infection of the surgical site, no discharge, no bleeding Assessment & Plan Assessment & Plan (1) Anal fistula: Code(s): K60.30 - Anal fistula, unspecified Category: Medical Plan: Status post partial fistulotomy and seton placement. He is doing very well. The seton is in place. I have instructed him to continue to do hot Sitz baths to keep the area clean and dry I will see him next month to tighten the seton. The area is not infected otherwise. Coding Level of Care Code Global (66475) Diagnoses Anal fistula K60.30
== END 2024-08-31 13:34 | disposition home or self-care (01) ==
LOC: HO.HGS 13:17
PROVIDERS: PCP Internal Medicine; Visit Provider Surgery
DX: K60.30 Anal fistula, unspecified (principal)
CPT/HCPCS: 99024

== ENCOUNTER 2024-09-22 07:04 | Outpatient (REF) | payer OTHER, SELFPAY ==
[2024-09-22] MEDS: Lidocaine HCl 1 % MPF 5 ML VIAL 10 ML SUBCUT (08:28)
--- NOTE | 2024-09-22 08:43 | P.OP_ITS ---
Operative Note Operative Note Date of Service: 09/22/24 Narrative: Preoperative diagnosis: Elevated PSA Postoperative diagnosis: Elevated PSA Procedure: 1. transrectal ultrasound measurement of prostate 2. transrectal ultrasound-guided pudendal nerve block 3. transrectal ultrasound-guided prostate biopsy 12 core Surgeon: Dr. Nando Boyd Anesthetic: 10cc 1% lidocaine Indications for procedure: Elevated PSA PSA 4 point 5 with free PSA 7% slow rise over 3 years Counselling: Technical aspects, risks and benefits of proposed procedure were discussed in full. All questions have been answered, written consent has been obtained and patient agrees to proceed. Procedure: The patient was brought into the procedure area and placed in a left lateral decubitus position. Patient identity confirmed. Perioperative antibiotics confirmed. Safety pause time out performed. CARLOS was performed to dilate rectal sphincter Iodine 10cc with 60 cc gel was placed per rectum to reduce infection risk using a catheter tip syringe. 8 Hz Isabel rectal end-fire ultrasound probe was placed transrectally without difficulty. The prostate was visualized. Seminal vesicles were normal. Prostate margins were clearly demarcated. Bladder was seen superiorly. No cystic structures were noted No calcifications were noted at the surgical margin The prostate was otherwise homogeneous in nature. Clear demarcation between peripheral and central zone. The prostate was measured in 3 dimensions Prostatic Width: 5.0 cm Prostatic Height: 3.4 cm Urethral Length: 4.4 cm Total volume equals : 40 ml An ultrasound-guided pudendal nerve block was performed using a 22 gauge spinal needle in the sagittal plane. 4 cc of 1% lidocaine placed at the junction of each seminal vesicle and 2 cc placed at the apex of the prostate. A 12 core biopsy was performed with 6 cores each side using an 18 gauge prostate biopsy gun. Two cores each were taken at the prostate apex, mid and base on each side. Cores were spaced between lateral and medial aspects. Each core was examined as placed on specimen foam as part of microbiology quality control technician to ensure a minimum 1 cm of length and minimal discontinuity. He tolerated the procedure well with minimal rectal bleeding. Blood pressure remained stable following procedure. He was able to ambulate to bathroom after 5 minutes. Printed instructions regarding antibiotic use and common adverse events from the procedure such as low-grade temperature, potential infection and bleeding were given. He understands to call the office or go to an emergency room should any of these events arise. Pathology: 12 core prostate biopsy. CPT code 40841: Transrectal ultrasound; this is a diagnostic test for evaluation of the prostate and surrounding structures, looking for abnormalities or suspicious areas worrisome for cancer CPT code 65925: Biopsy, prostate; needle or punch, single or multiple, any approach CPT code 04368: Ultrasonic guidance for needle placement (eg, biopsy, aspiration, injection, localization device), imaging supervision and interpretation
== END 2024-09-22 07:05 | disposition home or self-care (01) ==
LOC: HO.US 07:04
PROVIDERS: PCP Internal Medicine; Visit Provider Urology
DX: R97.20 Elevated prostate specific antigen [PSA] (principal)
CPT/HCPCS: 55700; 76942; 88305; 88344; J2003

== ENCOUNTER → 2024-09-22 07:04 | Outpatient (BNV) | payer OTHER, SELFPAY | PROVIDERS: PCP Internal Medicine; Visit Provider Urology | DX: R97.20 Elevated prostate specific antigen [PSA] (principal) | CPT/HCPCS: 55700; 76872; 76942 ==

== ENCOUNTER 2024-10-05 12:54 | Outpatient (AMB) | payer OTHER, SELFPAY ==
--- NOTE | 2024-10-05 13:05 | A.OFFVIS_ITS ---
Vital Signs 10/05/24 13:06 Height 5 ft 11 in Weight 207 lb BMI 28.9 BP 131/77 Blood Pressure Location Rt brachial Position Sitting Pulse 95 Intake Visit Reasons: S/P EUA, poss seton placement, fistulotomy Intake Note: Patient here s/p seton placement and partial fistulotomy. Patient c/o: no concerns. Denies bleeding. Reports normal BM. Surgery: 08-18-2024. Vulnerability Assessment Analyst Required: No Accompanied by: Self / Same As Patient Allergies No Known Allergies [No Known Allergies*] Allergy (Verified 10/05/24 13:06) Medication List - Last Reconciled 10/05/24 by Ousmane Reagan MD albuterol sulfate 2.5 mg (3 mL) continuous nebulization Q4-6H PRN albuterol sulfate 90 mcg/actuation 2 puffs inhalation Q6H PRN 30 days beclomethasone dipropionate 80 mcg/actuation (Qvar RediHaler) 1 inh inhalation BID chlorthalidone 25 mg PO DAILY 90 days cholecalciferol (vitamin D3) 50 mcg PO DAILY 90 days fluticasone propionate 110 mcg/actuation (Flovent HFA) 1 puff inhalation BID 30 days ibuprofen 600 mg PO Q6H PRN loratadine 10 mg PO DAILY PRN 90 days losartan 100 mg PO DAILY 90 days methylcellulose (laxative) (Citrucel) 500 mg PO BID 30 days multivitamin 1 tab PO DAILY potassium chloride ER 20 mEq PO DAILY 90 days sildenafil 50 mg PO DAILY PRN HPI HPI S/P EUA, poss seton placement, fistulotomy: Details: He had exam under anesthesia last July, and had a seton placed for an anal fistula. He currently denies significant complaints. He denies any significant drainage from the fistula site. [facility] Medical History Anal fistula Erectile dysfunction Constipation Vitamin D deficiency Overweight (BMI 25.0-29.9) Migraine Asthma Benign essential hypertension Surgical History Hx of colonoscopy History of hernia surgery Family History Mother Diabetes Father Diabetes High blood pressure Social History Housing: House Are you a primary childcare administrator to a significant other at home: No Do you presently have visiting nurse or other home services: No Alcohol intake: current Alcohol intake frequency: holidays/special occasions only Alcohol type: beer Comment: medicated Patient Tobacco Use Status: Never used Tobacco e-Cigarette/Vaping Use: Never Used Second Hand Smoke Exposure: Yes service: No Current occupational status: employed Current occupational exposures/hazards: No Cognitive needs: No Hearing needs: No Vision needs: No Review of Systems Const Denies chills and Denies fever(s) Card Denies chest pain, Denies dyspnea and Denies dyspnea on exertion Resp Denies cough, Denies dyspnea and Denies dyspnea on exertion GI Denies hematochezia and Denies change in bowel habits Denies hematuria and Denies difficulty urinating Musc Denies back pain and Denies limited range of motion Neuro Denies focal weakness and Denies convulsions Psych Denies depression and Denies mood swings Physical Exam Const General: comfortable and no acute distress Resp Effort & Inspection: normal respiratory effort GI Other: Rectal exam shows the seton to be in place, no new induration, no suggestion of any new fistulous tract; the seton appears loose around the remaining fistula tract Assessment & Plan Assessment & Plan (1) Anal fistula: Code(s): K60.30 - Anal fistula, unspecified Category: Medical Plan: His seton is in place. I tightened this with a silk 3-0 tie to make this snug around the remaining fistula tract. We will see him again in about a month in the office. Was instructed on doing hot Sitz baths. Coding Level of Care Code Global (43061) Diagnoses Anal fistula K60.30
[2024-10-05 13:06] VITALS: BP 131/77; PULSE 95; BMI 28.9
== END 2024-10-05 13:15 | disposition home or self-care (01) ==
LOC: HO.HGS 12:55
PROVIDERS: PCP Internal Medicine; Visit Provider Surgery
DX: K60.30 Anal fistula, unspecified (principal)
CPT/HCPCS: 99024

== ENCOUNTER → 2024-10-05 12:54 | Outpatient (BNVA) | payer OTHER, SELFPAY | PROVIDERS: PCP Internal Medicine; Visit Provider Surgery | DX: K60.30 Anal fistula, unspecified (principal) ==

== ENCOUNTER 2024-10-06 15:19 | Outpatient (AMB) | payer OTHER, SELFPAY ==
--- NOTE | 2024-10-06 15:29 | MHC.OFFVIS ---
Intake Visit Reasons: Prostate biopsy results Intake Note: Patient is present for PROSTATE BIOPSY RESULTS Urology Medication:POTASSIUM CHLORIDE,SILDENAFIL Antibiotic Allergy:NONE Blood Thinner:NONE Director Of Content Marketing Required: No Allergies No Known Allergies [No Known Allergies*] Allergy (Verified 10/06/24 15:30) HPI Comments Details: Flako is a pleasant male. He is a patient of Dr. Kyle. He is seen for the following urologic conditions - elevated PSA - erectile dysfunction Telemedicine Evaluation 15 min Consultation [facility] ([employer]) Josette Video Discussed prostate biopsy result Negative 6m f/u PSA Elevated PSA Slow rise over past 3 years PSA 01/18 3.5, 01/19 3.9, 01/20 4.9, 08/21 4.5 7% Prostate biopsy - 10/21 NAD Erectile dysfunction On demand sildenafil 50 mg Background hypertension, impaired fasting glucose, borderline cholesterol Has been taking 1/2 tablet Encouraged to take whole tablet PFSH Medical History Anal fistula Erectile dysfunction Constipation Vitamin D deficiency Overweight (BMI 25.0-29.9) Migraine Asthma Benign essential hypertension Surgical History Hx of colonoscopy History of hernia surgery Family History Mother Diabetes Father Diabetes High blood pressure Social History Housing: House Are you a primary home care coordinator to a significant other at home: No Do you presently have visiting nurse or other home services: No Alcohol intake: current Alcohol intake frequency: holidays/special occasions only Alcohol type: beer Comment: medicated Patient Tobacco Use Status: Never used Tobacco e-Cigarette/Vaping Use: Never Used Second Hand Smoke Exposure: Yes service: No Current occupational status: employed Current occupational exposures/hazards: No Cognitive needs: No Hearing needs: No Vision needs: No Review of Systems Const All systems reviewed & are unremarkable except as noted in HPI and below Reports no additional complaints Resp Reports no additional complaints GI Reports no additional complaints Reports as per HPI Musc Reports no additional complaints Physical Exam Telemedicine evaluation Appropriate responses Regular breathing rate and rhythm HEENT Head: Yes normal to inspection Ears: hearing grossly normal bilaterally Eyes General: appearance normal, both eyes and all related structures Neck Neck: Yes normal visual inspection Chest Chest palpation & inspection: normal inspection of the chest Resp Effort & Inspection: normal respiratory effort and able to speak in complete sentences Telehealth Telehealth Location of provider rendering services: practice address Location of patient: address on file Patient Identification confirmed using: Name, : Yes Telehealth method: voice only Patient verbally consented to treatment: Yes Patient verbally consented to billing insurance company: Yes Patient informed of any privacy concerns related to visit: Yes Assessment & Plan Assessment & Plan (1) Elevated PSA: Code(s): R97.20 - Elevated prostate specific antigen [PSA] Category: Medical Plan Six-month follow-up PSA Orders: Orders PSA,Total (Free>4and<10) 6 Months R97.20 - Elevated prostate specific antigen [PSA] Patient Instructions: This note is constructed using voice recognition software. While every effort has been made to ensure accuracy therapeutic dietitian errors may have been included. Imaging studies, laboratory and physical exam results were discussed and reviewed in detail. No major barriers to patient understanding were identified. An opportunity to ask questions regarding the treatment plan was provided. All questions were answered. The patient expressed understanding and agreement with the above treatment plan. The patient is aware they should contact our office by phone for worsening of their current condition or the appearance of new urologic symptoms. Compliance is encouraged with any medications and followup testing that is ordered. It is a privilege to participate in the urologic care of your patient. If you have any questions or concerns regarding treatment for the above conditions, or other urologic issues, please do not hesitate to contact me. The office telephone contact is [phone]. Sincerely, Dr Nando Boyd MD, [facility] - Urology Compassionate Specialist Care for the Genitourinary System Coding Level of Care Code Tele Est Pt Level 3 (85398) Diagnoses Elevated PSA R97.20
== END 2024-10-06 16:13 | disposition home or self-care (01) ==
LOC: HO.HUSH 15:19
PROVIDERS: PCP Internal Medicine; Visit Provider Urology
DX: R97.20 Elevated prostate specific antigen [PSA] (principal)
CPT/HCPCS: 99213

== ENCOUNTER → 2024-10-06 15:19 | Outpatient (BNVA) | payer OTHER, SELFPAY | PROVIDERS: PCP Internal Medicine; Visit Provider Urology ==

== ENCOUNTER 2024-11-06 11:15 | Outpatient (AMB) | payer OTHER, SELFPAY ==
--- NOTE | 2024-11-06 11:22 | A.OFFVIS_ITS ---
Vital Signs 11/06/24 11:33 Height 5 ft 11 in Weight 213 lb BMI 29.7 BP 142/83 H Blood Pressure Location Lt brachial Position Sitting Pulse 80 Intake Visit Reasons: S/P EUA, poss seton placement, fistulotomy Intake Note: Patient is seen in office for follow up visit, post seton placement and partial fistulotomy. Patient c/o: denies any concerns surgery:08/18/24 Sprayer Insecticide Required: No Allergies No Known Allergies (No Known Allergies*) Allergy (Verified 10/06/24 15:30) HPI HPI S/P EUA, poss seton placement, fistulotomy: Details: He is here for follow-up after seton placement for an anal fistula last July,. He denies any new complaints. He describes occasional pain and scanty discharge from the area of the seton. [facility] Medical History Anal fistula Erectile dysfunction Constipation Vitamin D deficiency Overweight (BMI 25.0-29.9) Migraine Asthma Benign essential hypertension Surgical History Hx of colonoscopy History of hernia surgery Family History Mother Diabetes Father Diabetes High blood pressure Social History Housing: House Are you a primary caregiver assisted living to a significant other at home: No Do you presently have visiting nurse or other home services: No Alcohol intake: current Alcohol intake frequency: holidays/special occasions only Alcohol type: beer Comment: medicated Patient Tobacco Use Status: Never used Tobacco e-Cigarette/Vaping Use: Never Used Second Hand Smoke Exposure: Yes service: No Current occupational status: employed Current occupational exposures/hazards: No Cognitive needs: No Hearing needs: No Vision needs: No Review of Systems Const Denies chills and Denies fever(s) Physical Exam Vital Signs: Last Vital Signs Pulse 80 11/06/24 11:33 BP 142/83 H 11/06/24 11:33 BMI result Body Mass Index 29.7 Const General: comfortable and no acute distress Resp Effort & Inspection: normal respiratory effort GI Other: Rectal exam shows the seton to be in place, and this is loose around the remaining fistula tract. No new fistulous tracts or sinuses Assessment & Plan Assessment & Plan (1) Anal fistula: Code(s): K60.30 - Anal fistula, unspecified Category: Medical Plan: Seton in place. I was able to tighten the seton some more. The residual fistula tract is now much shorter I will see him again next month and see if we can continue tightening the seton. Coding Level of Care Code Est Pt Level 2 (69746) Global (80681) Diagnoses Anal fistula K60.30
[2024-11-06 11:33] VITALS: BP 142/83; PULSE 80; BMI 29.7
== END 2024-11-06 11:41 | disposition home or self-care (01) ==
LOC: HO.HGS 11:16
PROVIDERS: PCP Internal Medicine; Visit Provider Surgery
DX: K60.30 Anal fistula, unspecified (principal)
CPT/HCPCS: 99024

== ENCOUNTER 2024-12-22 09:00 | Outpatient (AMB) | payer OTHER, SELFPAY ==
[2024-12-22 09:05] VITALS: BP 132/72; PULSE 72; BMI 29.3
--- NOTE | 2024-12-22 09:05 | MHC.OFFVIS ---
Vital Signs 12/22/24 09:05 Height 5 ft 11 in Weight 210 lb 5.136 oz BMI 29.3 BP 132/72 Blood Pressure Location Rt brachial Position Sitting Pulse 72 Intake Visit Reasons: 1m f/u EUA, poss seton placement, fistulotomy Intake Note: Patient here for 1mo follow-up after seton placement for an anal fistula last July,. Patient c/o: no concerns. Reports no changes in medical hx since last visit. KATHI: 11-06-2024 Scrap Drop Operator Required: No Accompanied by: Self / Same As Patient Allergies No Known Allergies (No Known Allergies*) Allergy (Verified 12/22/24 09:07) Medication List - Last Reconciled 12/22/24 by Ousmane Reagan MD albuterol sulfate 2.5 mg (3 mL) continuous nebulization Q4-6H PRN albuterol sulfate 90 mcg/actuation 2 puffs inhalation Q6H PRN 30 days beclomethasone dipropionate 80 mcg/actuation (Qvar RediHaler) 1 inh inhalation BID chlorthalidone 25 mg PO DAILY 90 days cholecalciferol (vitamin D3) 50 mcg PO DAILY 90 days fluticasone propionate 110 mcg/actuation (Flovent HFA) 1 puff inhalation BID 30 days ibuprofen 600 mg PO Q6H PRN loratadine 10 mg PO DAILY PRN 90 days losartan 100 mg PO DAILY 90 days methylcellulose (laxative) (Citrucel) 500 mg PO BID 30 days multivitamin 1 tab PO DAILY potassium chloride ER 20 mEq PO DAILY 90 days sildenafil 50 mg PO DAILY PRN HPI HPI 1m f/u EUA, poss seton placement, fistulotomy: Details: He is here for follow-up after seton placement for an anal fistula last July,. He denies any new complaints. He actually says that he feels much better and does not have any episodes of pain on the area anymore. [facility] Medical History Anal fistula Erectile dysfunction Constipation Vitamin D deficiency Overweight (BMI 25.0-29.9) Migraine Asthma Benign essential hypertension Surgical History Hx of colonoscopy History of hernia surgery Family History Mother Diabetes Father Diabetes High blood pressure Social History Housing: House Are you a primary adult daycare coordinator to a significant other at home: No Do you presently have visiting nurse or other home services: No Alcohol intake: current Alcohol intake frequency: holidays/special occasions only Alcohol type: beer Comment: medicated Patient Tobacco Use Status: Never used Tobacco e-Cigarette/Vaping Use: Never Used Second Hand Smoke Exposure: Yes service: No Current occupational status: employed Current occupational exposures/hazards: No Cognitive needs: No Hearing needs: No Vision needs: No Review of Systems Const Denies chills and Denies fever(s) Card Denies chest pain, Denies dyspnea and Denies dyspnea on exertion Resp Denies cough, Denies dyspnea and Denies dyspnea on exertion GI Denies hematochezia and Denies change in bowel habits Denies hematuria and Denies difficulty urinating Musc Denies back pain and Denies limited range of motion Neuro Denies focal weakness and Denies convulsions Psych Denies depression and Denies mood swings Physical Exam Vital Signs: Last Vital Signs Pulse 72 12/22/24 09:05 BP 132/72 12/22/24 09:05 BMI result Body Mass Index 29.3 Const General: comfortable and no acute distress Resp Effort & Inspection: normal respiratory effort Cardio Rate: regular rate GI Other: Rectal exam shows the seton to be in place, short remaining fistula tract but the seton appears to be a little loose Assessment & Plan Assessment & Plan (1) Anal fistula: Code(s): K60.30 - Anal fistula, unspecified Category: Medical Plan: Seton in place. I was able to tighten the seton some more using a silk 3-0 tie This was snug on the residual fistula tract with this much shorter. I will see him again in the office in about 1 month. He is doing very well overall. Coding Level of Care Code Est Pt Level 2 (70396) Diagnoses Anal fistula K60.30
== END 2024-12-22 09:21 | disposition home or self-care (01) ==
LOC: HO.HGS 09:01
PROVIDERS: PCP Internal Medicine; Visit Provider Surgery
DX: K60.30 Anal fistula, unspecified (principal)
CPT/HCPCS: 99212

== ENCOUNTER 2025-01-15 11:47 | Outpatient (REF) | payer OTHER, SELFPAY ==
[2025-01-15 11:57] LABS: MANUAL DIFF FLAG NO
[2025-01-15 12:16] LABS: Hematocrit 42.3 % (42.0-52.0); Hemoglobin 15.0 g/dl (14.0-18.0); Imm Gran Abs Auto 0.00 X10*3/uL (0.00-0.03); Imm Gran Pct Auto 0.0 % (0.0-0.4); Lymphocytes Absolute Auto 2.1 X10*3/uL (1.2-4.9); Mean Corpuscular HGB Conc 35.5 g/dl (31.0-36.0); Mean Corpuscular Hemoglobin 29.6 pg (27.0-33.0); Mean Corpuscular Volume 83.6 fL (80.0-98.0); NRBC Abs Auto 0.000 X10*3/uL (0.0-0.012); NRBC Pct Auto 0.0 /100WBC (0.0-0.2); Platelet Count 197 X10*3/uL (160-400); Red Blood Count 5.06 X10*6/uL (4.60-5.80); White Blood Count 5.1 X10*3/uL (4.8-10.8)
[2025-01-15 12:24] LABS: Appearance Urine Clear; Glucose Urine UA Negative (Negative); PH 6.0 (5.0-9.0); Specific Gravity - Urine 1.020 (1.005-1.025)
[2025-01-15 13:00] LABS: Alanine Aminotransferase 31 U/L (0-40); Albumin Level 4.4 g/dL (3.5-5.0); Alkaline Phosphatase 69 U/L (39-117); Anion Gap 10 (12-20); Aspartate Amino Transferase 37 U/L (5-37); Blood Urea Nitrogen 11 mg/dL (9-16); Calcium 9.1 mg/dL (8.4-10.2); Carbon Dioxide 31 mmol/L (22-29); Chloride 102 mmol/L (96-108); Cholesterol 181 mg/dL (<200); Estimated Glomerular Filt Rate > 60; HDL Cholesterol 57 mg/dL (>40); Potassium 3.0 mmol/L (3.3-5.1); Sodium 140 mmol/L (135-145); Total Protein 7.6 g/dL (6.5-8.0); Triglycerides 71 mg/dL (<150)
== END 2025-01-15 11:48 | disposition home or self-care (01) ==
LOC: HO.LAB 11:47
PROVIDERS: PCP Internal Medicine; Visit Provider Internal Medicine
DX: Z00.00 Encounter for general adult medical examination without abnormal findings (principal); R30.0 Dysuria; E78.00 Pure hypercholesterolemia, unspecified; D64.9 Anemia, unspecified
CPT/HCPCS: 36415; 80053; 80061; 81003; 84443; 85025

== ENCOUNTER 2025-01-19 08:51 | Outpatient (AMB) | payer OTHER, SELFPAY ==
[2025-01-19 09:00] VITALS: BP 142/98; PULSE 74; TEMP 36.2; O2SAT 98; BMI 28.9
--- NOTE | 2025-01-19 09:00 | A.OFFPC_ITS ---
Vital Signs 01/19/25 09:00 01/19/25 09:32 Height 5 ft 11 in Weight 207 lb 8 oz BMI 28.9 BP 142/98 H 140/86 H Blood Pressure Location Lt brachial Lt brachial Position Sitting Sitting Pulse 74 Pulse Source Pulse Oximeter Temp 97.1 F Temp Source Temporal Artery Scan Pulse Oximetry (%) 98 Oxygen Delivery Method Room Air Intake Visit Reasons: Annual Exam Allergies No Known Allergies (No Known Allergies*) Allergy (Verified 01/19/25 09:22) Medication List - Last Reconciled 01/19/25 by Jhon Kyle MD albuterol sulfate 2.5 mg (3 mL) continuous nebulization Q4-6H PRN albuterol sulfate 90 mcg/actuation 2 puffs inhalation Q6H PRN 30 days beclomethasone dipropionate 80 mcg/actuation (Qvar RediHaler) 1 inh inhalation BID chlorthalidone 25 mg PO DAILY 90 days cholecalciferol (vitamin D3) 50 mcg PO DAILY 90 days ibuprofen 600 mg PO Q6H PRN loratadine 10 mg PO DAILY PRN 90 days losartan 100 mg PO DAILY 90 days methylcellulose (laxative) (Citrucel) 500 mg PO BID 30 days multivitamin 1 tab PO DAILY potassium chloride ER 20 mEq PO DAILY 90 days sildenafil 50 mg PO DAILY PRN Tobacco use date assessed: 01/19/25 Dental Screening Dental Screen Date: 01/19/25 Did you have a dental visit in the last 12 months?: No Did you have a dental problem in the last 6 months where you did not have access to dental care?: No Was dental information given to patient?: Patient has dentist HPI Annual Exam HPI Details Patient comes in today for his follow up visit States that he feels okay He denies any headaches or dizziness Denies any chest pains, no increased SOB No nausea/vomiting, no abdominal pain No change in bowel habits noted He denies any acute urinary symptoms Needs a few of his Rx refilled, including his potassium supplements, which he states he ran out fo a couple of weeks ago He had his follow up labs done a few days ago - to discuss his results He is due for his repeat colonoscopy this year and already has appointment with GI for his precolonoscopy visit in February 2025 [facility] Medical History Anal fistula Erectile dysfunction Constipation Vitamin D deficiency Overweight (BMI 25.0-29.9) Migraine Asthma Benign essential hypertension Surgical History Hx of colonoscopy History of hernia surgery Family History Mother Diabetes Father Diabetes High blood pressure Social History Housing: House Are you a primary director medicare sales to a significant other at home: No Do you presently have visiting nurse or other home services: No Alcohol intake: current Alcohol intake frequency: holidays/special occasions only Alcohol type: beer Comment: medicated Patient Tobacco Use Status: Never used Tobacco e-Cigarette/Vaping Use: Never Used Second Hand Smoke Exposure: Yes service: No Current occupational status: employed Current occupational exposures/hazards: No Cognitive needs: No Hearing needs: No Vision needs: No Questionnaire PHQ-9 Over the last 2 weeks, how often have you been bothered by any of the following problems? 1. Little interest or pleasure in doing things: not at all 2. Feeling down, depressed, or hopeless: not at all 3. Trouble falling or staying asleep, or sleeping too much: not at all 4. Feeling tired or having little energy: not at all 5. Poor appetite or overeating: not at all 6. Feeling bad about yourself - or that you are a failure or have let yourself or your family down: not at all 7. Trouble concentrating on things, such as reading the newspaper or watching television: not at all 8. Moving or speaking so slowly that other people could have noticed. Or the opposite - being so fidgety or restless that you have been moving around a lot more than usual: not at all 9. Thoughts that you would be better off or of hurting yourself in some way: not at all Total score: 0 Depression Screening Interpretation: Negative Depression Screening Done: Yes 12945 - PHQ-9 Billing: Yes Source: Developed by Drs. Ruiz Calix, Camren Domínguez, Ramon Falcon and colleagues, with an educational evert from [employer]. Thrive Questionnaire Date Thrive assessed: 01/19/25 I am a: Patient What is your living situation today?: I have a steady place to live Within the past 12 months, did the food you bought not last and you didn't have the money to get more?: I choose not to answer this question Within the past 12 months, did you worry whether your food would run out before you got money to buy more?: I choose not to answer this question Do you have trouble paying for medicines?: I choose not to answer this question Do you have trouble getting transportation to medical appointments?: No Do you have trouble paying your heating and electricity bill?: I choose not to answer this question Do you have trouble taking care of your child, family member or friend?: I choose not to answer this question Do you have trouble with day-to-day activities such as bathing, preparing meals, shopping, managing finances, etc.?: No Are you currently unemployed and looking for a job?: No Are you interested in more education?: No Please select the resources that you would like help with: None Currently or been in a relationship where the following occur: No concerns reported THRIVE Score: 0 AUDIT C Alcohol Use Questionnaire (AUDIT-C) 1. How often do you have a drink containing alcohol?: 2-4 times a month 2. How many drinks containing alcohol do you have on a typical day when you are drinking?: 7 to 9 3. How often do you have six or more drinks on one occasion?: Weekly Total Score: 8 Score Reviewed/Action Taken: Yes GERARDO-7 AMB Questionnaire GERARDO-7 Date GERARDO - 7 assessed: 07/14/24 Feeling nervous, anxious, or on edge: 0 = Not at all Not being able to stop or control worryin = Not at all Worrying too much about different things: 0 = Not at all Trouble relaxin = Not at all Being so restless that it is hard to sit still: 0 = Not at all Becoming easily annoyed or irritable: 0 = Not at all Feeling afraid as if something awful might happen: 0 = Not at all Total GERARDO-7 score (0-4 normal; 5-9 mild; 10-14 moderate; 15-21 severe): 0 Source: Developed by Drs. Ruiz Calix, Carmen Domínguez, Ramon Falcon and colleagues, with an educational evert from [employer]. Review of Systems Const Denies chills, Denies fatigue, Denies fever(s), Denies headache(s), Denies malaise and Denies weakness Eyes Denies blurry vision, Denies change in vision, Denies irritation and Denies itchy eyes ENT Denies dysphagia, Denies dizziness, Denies otalgia, Denies headache(s), Denies nasal congestion, Denies neck pain, Denies odynophagia and Denies sore throat Card Denies chest pain, Denies rapid heart rate, Denies irregular heart rhythm, Denies palpitations and Denies dyspnea Resp Denies chest congestion, Denies cough, Denies dyspnea and Denies wheezing GI Denies abdominal pain, Denies bloating, Denies constipation, Denies dysphagia, Denies heartburn, Denies diarrhea, Denies nausea, Denies odynophagia and Denies vomiting Denies hematuria, Denies difficulty urinating, Denies dysuria, Denies urinary frequency and Denies urinary urgency Musc Denies back pain, Denies arthralgias, Denies joint swelling, Denies muscle weakness and Denies neck pain Skin/Breast Denies change in pigmentation, Denies lesions, Denies rash and Denies unusual bruising Neuro Denies dizziness, Denies headache(s), Denies paresthesias and Denies weakness Endo Denies fatigue and Denies palpitations Aller/Immun Denies itchy eyes and Denies wheezing Physical exam (Primary Care) Vital Signs: Last Vital Signs Temp 97.1 F 01/19/25 09:00 Pulse 74 01/19/25 09:00 BP 142/98 H 01/19/25 09:00 Pulse Ox 98 01/19/25 09:00 Oxygen Delivery Method Room Air 01/19/25 09:00 BMI result Body Mass Index 28.9 Tobacco/Smoking Status: Tobacco use Status Tobacco use date assessed 01/19/25 01/19/25 09:03 Patient Tobacco Use Status Never used Tobacco 01/19/25 09:03 e-Cigarette/Vaping Use Never Used 01/19/25 09:03 PHQ-9: PHQ-9 Score PHQ-9: Total score 0 01/19/25 09:03 Depression Screening Interpretation: Negative Thrive Assessment: Date of Thrive Assessment Date Thrive assessed 01/19/25 01/19/25 09:03 Currently or been in a relationship where the following occur: No concerns reported Const General: no acute distress, alert and awake Orientation/consciousness: patient oriented x3 HENMT Head: Yes normocephalic and Yes atraumatic Ears: external ears normal, TM's normal bilaterally and EAC's normal General nose exam: No nasal discharge present Face and sinus: Yes normal facial exam and Yes sinuses nontender Teeth and gingiva: dentition normal Throat: Yes posterior oropharynx normal and Yes tonsils normal (no TP congestion) Eyes Eyelids: Yes eyelids normal Conjunctivae: conjunctivae normal Pupils: Equal, round and reactive pupils present EOM: EOMs intact bilaterally Neck Neck: Yes no lymphadenopathy and Yes supple Thyroid: Thyroid normal Resp Auscultation: clear to auscultation bilaterally, no rales and no wheezes Cardio Rate: regular rate Rhythm: regular rhythm Heart sounds: no murmurs GI Palpation (GI): Soft to palpation, nontender and No hepatosplenomegaly present Auscultation: normal bowel sounds General: Yes no CVA tenderness Back/Spine/Pelvis Back: no CVA tenderness Thoracic/Lumbar Spine: thoracic and lumbar spine normal to inspection Skin Lesions: no lesions Rashes: no rashes Neuro General: patient oriented x3, moves all extremities, no focal motor deficits and CN's II-XI intact bilaterally Cranial nerves: Yes Equal, round and reactive pupils present Cognition (Neuro): normal cognition Gait exam (Neuro): Normal gait present Extrem General: Yes no clubbing, cyanosis or edema Results Reviewed Results Reviewed: Laboratory Tests 01/15/25 01/15/25 11:51 11:55 WBC 5.1 Hgb 15.0 Hct 42.3 Plt Count 197 Sodium 140 Potassium 3.0 L Creatinine 1.03 Estimated GFR > 60 Fasting Glucose 93 AST 37 ALT 31 Triglycerides 71 Cholesterol 181 LDL Cholesterol, Calc 110 H HDL Cholesterol 57 TSH 1.48 Ur Specific [place] 1.020 Urine Protein Trace Urine Glucose (UA) Negative Urine Blood Negative Urine Nitrite Negative Ur Leukocyte Esterase Negative Coding Level of Care Code Est Pt Level 4 (45011) Diagnoses Annual physical exam Z00.00 Benign essential hypertension I10 Moderate persistent asthma without complication J45.40 Asthma severity: moderate Asthma persistence: persistent Asthma complication type: uncomplicated Impaired fasting glucose R73.01 Migraine without status migrainosus, not intractable, unspecified migraine type G43.909 Migraine type: unspecified Status migrainosus presence: without status migrainosus Intractability: not intractable Vitamin D deficiency E55.9 Constipation, unspecified constipation type K59.00 Constipation type: unspecified constipation type Erectile dysfunction, unspecified erectile dysfunction type N52.9 Erectile dysfunction type: unspecified Overweight (BMI 25.0-29.9) E66.3 Additional Codes PHQ-9 - 14947 - PHQ-9 Billing: Yes ([id number]) Assessment & Plan Assessment & Plan (1) Annual physical exam: Code(s): Z00.00 - Encounter for general adult medical examination without abnormal findings Category: Medical Plan: Results of his labs done a few days ago reviewed and discussed with patient He is due for his repeat colonoscopy this year and already has appointment with GI for his precolonoscopy visit in February 2025 (2) Benign essential hypertension: Code(s): I10 - Essential (primary) hypertension Category: Medical Plan: Reinforced low sodium diet - goal is systolic BP of 120 mm or less Continue Losartan 100 mg QD and Chlorthalidone 25 mg QD; he is also on KCl ER 20 meq QD for potassium supplement/replacement but he ran out of this a couple of weeks ago - Rx refilled Patient is reminded to continue monitoring his blood pressure regularly (3) Asthma: Code(s): J45.909 - Unspecified asthma, uncomplicated Category: Medical Qualifiers: Asthma severity: moderate Asthma persistence: persistent Asthma complication type: uncomplicated Qualified Code(s): J45.40 - Moderate persistent asthma, uncomplicated Plan: Controlled Continue Qvar Redihaler 80 mcg 1 inhalation BID and Albuterol HFA 2 inhalations Q 6 hours PRN (4) Impaired fasting glucose: Code(s): R73.01 - Impaired fasting glucose Category: Medical Plan: His HgbA1c was normal at 5.8% and 5.7% when previously checked; his FBS was normal at 93 mg/dl on his recent labs Reinforced low calorie/low carb diet, exercise as tolerated We will continue to monitor his FBS and his HgbA1c regularly (5) Migraine: Code(s): G43.909 - Migraine, unspecified, not intractable, without status migrainosus Category: Medical Qualifiers: Migraine type: unspecified Status migrainosus presence: without status migrainosus Intractability: not intractable Qualified Code(s): G43.909 - Migraine, unspecified, not intractable, without status migrainosus Plan: Stable/controlled; reinforced avoidance of all potential migraine triggers Continue Sumatriptan 20 mg nasal spray PRN (6) Vitamin D deficiency: Code(s): E55.9 - Vitamin D deficiency, unspecified Category: Medical Plan: Continue Vitamin D3 2000 units QD (7) Constipation: Code(s): K59.00 - Constipation, unspecified Category: Medical Qualifiers: Constipation type: unspecified constipation type Qualified Code(s): K59.00 - Constipation, unspecified Plan: Reinforced increased oral fluids and dietary fiber intake Continue Bisacodyl 10mg QD PRN and Miralax 17 gm QD He is also on Citrucel 500 mg BID, which should help with his bowel movements (8) Erectile dysfunction: Code(s): N52.9 - Male erectile dysfunction, unspecified Category: Medical Qualifiers: Erectile dysfunction type: unspecified Qualified Code(s): N52.9 - Male erectile dysfunction, unspecified Plan: Continue Sildenafil 50 mg PRN (9) Overweight (BMI 25.0-29.9): Code(s): E66.3 - Overweight Category: Medical Plan: Reinforced diet/exercise as tolerated/lose weight Plan Follow up in 6 months Orders: Orders Comprehensive [place]. Panel Fast 6 Months E78.00 - Pure hypercholesterolemia, unspecified Complete Blood Count Auto Diff 6 Months D64.9 - Anemia, unspecified Lipid Panel 6 Months E78.00 - Pure hypercholesterolemia, unspecified Magnesium 6 Months E83.42 - Hypomagnesemia UA CC w/rflx Micro + Cult 6 Months R30.0 - Dysuria Vitamin D 25-OH Total 6 Months E55.9 - Vitamin D deficiency, unspecified Medications: Refilled cholecalciferol (vitamin D3) 50 mcg PO DAILY 90 caps 3RF 90 days E55.9 - Vitamin D deficiency, unspecified potassium chloride ER 20 mEq PO DAILY 90 tabs 3RF 90 days I10 - Essential (primary) hypertension beclomethasone dipropionate 80 mcg/actuation (Qvar RediHaler) 1 inh inhalation BID 10.6 grams 3RF
[2025-01-19 09:32] VITALS: BP 140/86
== END 2025-01-19 09:37 | disposition home or self-care (01) ==
LOC: HO.HMCH 08:52
PROVIDERS: PCP Internal Medicine; Visit Provider Internal Medicine
DX: Z00.00 Encounter for general adult medical examination without abnormal findings (principal); I10 Essential (primary) hypertension; J45.40 Moderate persistent asthma, uncomplicated; R73.01 Impaired fasting glucose; G43.909 Migraine, unspecified, not intractable, without status migrainosus; E55.9 Vitamin D deficiency, unspecified; K59.00 Constipation, unspecified; N52.9 Male erectile dysfunction, unspecified; E66.3 Overweight

== ENCOUNTER → 2025-01-19 08:51 | Outpatient (BNVA) | payer OTHER, SELFPAY | PROVIDERS: PCP Internal Medicine; Visit Provider Internal Medicine | DX: Z00.00 Encounter for general adult medical examination without abnormal findings (principal); I10 Essential (primary) hypertension; J45.40 Moderate persistent asthma, uncomplicated; R73.01 Impaired fasting glucose; G43.909 Migraine, unspecified, not intractable, without status migrainosus; K59.00 Constipation, unspecified; N52.9 Male erectile dysfunction, unspecified; E66.3 Overweight; E78.00 Pure hypercholesterolemia, unspecified; D64.9 Anemia, unspecified; E83.42 Hypomagnesemia; R30.0 Dysuria; Z68.28 Body mass index [BMI] 28.0-28.9, adult | CPT/HCPCS: 96127 ==

== ENCOUNTER 2025-01-27 11:00 | Outpatient (AMB) | payer OTHER, SELFPAY ==
[2025-01-27 11:01] VITALS: BP 143/84; PULSE 69; BMI 29.1
--- NOTE | 2025-01-27 11:01 | A.OFFVIS_ITS ---
Vital Signs 01/27/25 11:01 Height 5 ft 11 in Weight 209 lb BMI 29.1 BP 143/84 H Blood Pressure Location Rt brachial Position Sitting Pulse 69 Intake Visit Reasons: 1m f/u EUA, poss seton placement, fistulotomy Intake Note: This patient presents for one month follow-up for seton. Pt c/o; reports no complaints. Director Diversity Required: No Accompanied by: Self / Same As Patient Allergies No Known Allergies (No Known Allergies*) Allergy (Verified 01/27/25 11:02) Medication List - Last Reconciled 02/01/25 by Ousmane Reagan MD albuterol sulfate 2.5 mg (3 mL) continuous nebulization Q4-6H PRN albuterol sulfate 90 mcg/actuation 2 puffs inhalation Q6H PRN 30 days beclomethasone dipropionate 80 mcg/actuation (Qvar RediHaler) 1 inh inhalation BID chlorthalidone 25 mg PO DAILY 90 days cholecalciferol (vitamin D3) 50 mcg PO DAILY 90 days ibuprofen 600 mg PO Q6H PRN loratadine 10 mg PO DAILY PRN 90 days losartan 100 mg PO DAILY 90 days methylcellulose (laxative) (Citrucel) 500 mg PO BID 30 days multivitamin 1 tab PO DAILY potassium chloride ER 20 mEq PO DAILY 90 days sildenafil 50 mg PO DAILY PRN HPI HPI 1m f/u EUA, poss seton placement, fistulotomy: Details: He is here for follow-up for his anal fistula with a seton in place. He denies any new complaints. He denies any significant drainage from his fistula tract. He feels well overall. [facility] Medical History Anal fistula Erectile dysfunction Constipation Vitamin D deficiency Overweight (BMI 25.0-29.9) Migraine Asthma Benign essential hypertension Surgical History Hx of colonoscopy History of hernia surgery Family History Mother Diabetes Father Diabetes High blood pressure Social History Housing: House Are you a primary career development facilitator to a significant other at home: No Do you presently have visiting nurse or other home services: No Alcohol intake: current Alcohol intake frequency: holidays/special occasions only Alcohol type: beer Comment: medicated Patient Tobacco Use Status: Never used Tobacco e-Cigarette/Vaping Use: Never Used Second Hand Smoke Exposure: Yes service: No Current occupational status: employed Current occupational exposures/hazards: No Cognitive needs: No Hearing needs: No Vision needs: No Review of Systems Const Denies chills and Denies fever(s) Card Denies chest pain with activity Resp Denies cough GI Denies abdominal pain Physical Exam Vital Signs: Last Vital Signs Pulse 69 01/27/25 11:01 BP 143/84 H 01/27/25 11:01 BMI result Body Mass Index 29.1 Const General: comfortable and no acute distress Resp Effort & Inspection: normal respiratory effort Cardio Rate: regular rate GI Other: Rectal exam shows the seton to be in place, loose around the remaining fistula tract, no induration, no new sinus Palpation (GI): Soft to palpation, not firm and nontender Assessment & Plan Assessment & Plan (1) Anal fistula: Code(s): K60.30 - Anal fistula, unspecified Category: Medical Plan: I tightened the seton with a silk 2-0 tie. This was made snug around the remaining fistula tract. The fistula tract is much shorter. I will see him again in the office in about a month. Hopefully, the seton may have cut through the fistula tract by then. Coding Level of Care Code Est Pt Level 2 (91287) Diagnoses Anal fistula K60.30
== END 2025-01-27 11:15 | disposition home or self-care (01) ==
LOC: HO.HGS 11:00
PROVIDERS: PCP Internal Medicine; Visit Provider Surgery
DX: K60.30 Anal fistula, unspecified (principal)
CPT/HCPCS: 99212

== ENCOUNTER 2025-03-05 07:44 | Outpatient (AMB) | payer OTHER, SELFPAY ==
--- NOTE | 2025-03-05 07:57 | MHC.OFFVIS ---
Vital Signs 03/05/25 07:59 Height 5 ft 11 in Weight 207 lb 3.752 oz BMI 28.9 BP 145/84 H Blood Pressure Location Lt brachial Position Sitting Pulse 76 Intake Visit Reasons: colo screen jm pt Intake Note: Flako presents in the office as a colonoscopy screening. CC: States that he is just due for the colonoscopy. Staffing Director Required: No Allergies No Known Allergies (No Known Allergies*) Allergy (Verified 03/05/25 08:01) Medication List - Last Reconciled 03/05/25 by Abbie Cruz CNP albuterol sulfate 90 mcg/actuation 2 puffs inhalation Q6H PRN 30 days beclomethasone dipropionate 80 mcg/actuation (Qvar RediHaler) 1 inh inhalation BID chlorthalidone 25 mg PO DAILY 90 days cholecalciferol (vitamin D3) 50 mcg PO DAILY 90 days ibuprofen 600 mg PO Q6H PRN loratadine 10 mg PO DAILY PRN 90 days losartan 100 mg PO DAILY 90 days methylcellulose (laxative) (Citrucel) 500 mg PO BID 30 days multivitamin 1 tab PO DAILY potassium chloride ER 20 mEq PO DAILY 90 days sildenafil 50 mg PO DAILY PRN HPI HPI colo screen pt: Details: Patient is a 59-year-old male with PMH of migraines, asthma, vitamin-D Deficiency, hypertension. Flako presents for pre-procedure assessment prior to his scheduled colonoscopy. His last colonoscopy in July 2021 revealed one precancerous polyp and internal hemorrhoids; bowel prep was reportedly adequate. He reports regular bowel movements, typically twice daily, with occasional hard stools but no recent episodes of diarrhea. Constipation is mild, managed by increased water intake (six bottles/day) and dietary fiber, though he is not taking fiber supplements. Persistent flatulence is present but non-disruptive. No new GI or constitutional symptoms endorsed. Relevant comorbidities include well controlled asthma and hypertension (on antihypertensive medication). He reports a recent non-GI surgical drainage procedure for an infection, managed by general surgery with a drain in place. Patient denies: fever/chills, n/v, appetite changes, pyrosis, regurgitation,dysphasia, unintentional wt loss, ab pain or melena/hematochezia. Social hx: -ETOH use, Drinks ~12 beers once weekly, typically on Saturdays; counseled to reduce intake -denies recreational drug use -non-smoker - family hx as below -denies personal hx of CA -denies significant cardiopulmonary history -tolerated anesthesia in the past without difficulty. [facility] Medical History Anal fistula Erectile dysfunction Constipation Vitamin D deficiency Overweight (BMI 25.0-29.9) Migraine Asthma Benign essential hypertension Surgical History Hx of colonoscopy History of hernia surgery Family History Mother Diabetes Father Diabetes High blood pressure Social History Housing: House Are you a primary healthcare specialist to a significant other at home: No Do you presently have visiting nurse or other home services: No Alcohol intake: current Alcohol intake frequency: holidays/special occasions only Alcohol type: beer Comment: medicated Patient Tobacco Use Status: Never used Tobacco e-Cigarette/Vaping Use: Never Used Second Hand Smoke Exposure: Yes service: No Current occupational status: employed Current occupational exposures/hazards: No Cognitive needs: No Hearing needs: No Vision needs: No Review of Systems Const Reports as per HPI ENT Reports as per HPI Card Reports as per HPI Resp Reports as per HPI GI Reports as per HPI Reports as per HPI Physical Exam Vital Signs: Last Vital Signs Pulse 76 03/05/25 07:59 BP 145/84 H 03/05/25 07:59 BMI result Body Mass Index 28.9 Const General: healthy appearing, no acute distress and well developed Nutritional Appearance: average body habitus Orientation/consciousness: patient oriented x3 HEENT Head: Yes normal to inspection, Yes normocephalic and Yes atraumatic Face and sinus: Yes normal facial exam Eyes General: appearance normal, both eyes and all related structures Neck Neck: Yes normal visual inspection Resp Effort & Inspection: normal respiratory effort, able to speak in complete sentences, no tracheal deviation and symmetric chest movement Cardio Jugular venous distension: no JVD Rate: regular rate Rhythm: regular rhythm Heart sounds: S1 normal heart sound present, S2 normal heart sound present, no gallops and no murmurs GI Auscultation: normal bowel sounds Neuro General: patient oriented x3 Gait exam (Neuro): Normal gait present Psych Appearance: grossly normal Mental Status: mental status grossly normal Speech and movement: Normal speech and movement present Affect: normal affect Attitude: cooperative Thought process: Normal thought process present Thought content: Normal thought content present Insight: Good insight present (Psych) Judgement: Good judgement present (Psych) Results Reviewed Results Reviewed: Operative Note Date of Service: 08/25/21 Narrative: Pre-op diagnosis: Colon cancer screening Post-op diagnosis: other (Colon polyp, diverticulosis, hemorrhoids) Procedure: COLONOSCOPY TILL CECUM WITH SNARE POLYPECTOMY Consent: Indications for the procedure and potential complications of bleeding, perforation, reaction to medications and missed diagnosis were discussed with the patient and informed consent was obtained. Instrument: Olympus PCF H 190 L variable stiffness pediatric colonoscope Monitoring: Vital signs and clinical assessment, intermittent blood pressure monitoring, continuous EKG monitoring, Pulse oximetry and Carbon Dioxide monitoring were done throughout the procedure. Colon withdrawl time was 20 minutes. Procedure: The patient was placed in the left lateral decubitis position and pre-procedure medications were administered. After a digital rectal examination of the ano-rectum, the video colonoscope was inserted into the rectum and advanced through the colon to the cecum. The colonoscope was slowly withdrawn in a retrograde panoramic fashion and the colon mucosa was carefully examined including a retroflexed view of the rectum. Findings and interventions are described below. Procedure Difficulty: Without difficulty Findings: Terminal Ileum: Not evaluated Cecum: A 10 mm sessile adenomatous appearing polyp removed with a cold snare Ascending Colon: Normal Transverse Colon: Normal Descending Colon: Moderate diverticulosis Sigmoid Colon: Moderate diverticulosis Rectum: Normal Ano-rectum: Moderate internal hemorrhoids Colon preparation: Good Impression and Post Procedure Diagnosis: Colonoscopy Findings: One medium sized polyps removed Moderate diverticulosis seen in the left colon Moderate hemorrhoids on retroflexed exam. Plan: Await pathology results Patient has an appointment on 09/07/21 in the GI Clinic with MICHAEL Car. Repeat Colonoscopy interval based on path results - in 3-5 years if polyps are adenomatous and 10 years if polyps are hyperplastic. Above findings were reviewed with the patient and colon polyps and diverticulosis handouts were given in the discharge area Surgeon: Sammy Arevalo MD PATHOLOGY: Collected: 08/25/21 Location: [facility] Received: 08/25/21 Diagnosis Cecum, polypectomy: Fragments of tubular adenoma; no high-grade dysplasia or carcinoma seen. Clinical History Pre-Op Dx: Screening, constipation, rectal bleeding Post-Op Dx: Colon polyp, diverticulosis, hemorrhoid Assessment & Plan Assessment & Plan (1) Colon cancer screening: Comment: 08/25/21 colonoscopy complete with good prep-10 mm TA (cecum), moderate diverticulosis (descending, sigmoid), monitor internal hemorrhoids. Recommendations for repeat 3-5 years. Code(s): Z12.11 - Encounter for screening for malignant neoplasm of colon Category: Medical Plan: Previous colonoscopy in July 2021 demonstrated removal of one precancerous polyp and internal hemorrhoids; scheduled repeat screening per guidelines. Additional Testing: Colonoscopy scheduled; no additional pre-procedural labs/imaging indicated based on current info. Medication Management: Prescribed split-bowel prep as per protocol. Laxative tablets (2 tablets nightly starting 5 days prior to procedure, then 4 tablets plus bowel prep solution day before procedure). Lifestyle Recommendations: Clear liquid diet day before procedure. Avoid red, blue, and purple liquids during prep. Reinforced importance of hydration and adherence to prep instructions. Follow-Up: Colonoscopy per schedule; notify GI team of any new GI or constitutional symptoms prior. (2) Constipation: Code(s): K59.00 - Constipation, unspecified Category: Medical Qualifiers: Constipation type: unspecified constipation type Qualified Code(s): K59.00 - Constipation, unspecified Plan: Reports occasional hard stool; regular bowel pattern otherwise, managed with hydration and dietary modifications. Additional Testing: None indicated at this time. Medication Management: No current pharmacotherapy. Consider adding fiber supplement or stool softener only if dietary measures fail. Lifestyle Recommendations: Increase dietary fiber (provided handout), continue high water intake, regular exercise. Follow-Up: Monitor symptom response; may trial OTC stool softener if constipation worsens. (3) Hemorrhoids: Code(s): K64.9 - Unspecified hemorrhoids Category: Medical Qualifiers: Hemorrhoid type: unspecified Qualified Code(s): K64.9 - Unspecified hemorrhoids Plan: Previous endoscopic findings; no current rectal bleeding, discomfort, or complications. Additional Testing: None indicated unless symptoms recur. Medication Management: None indicated. Lifestyle Recommendations: Continue constipation management to prevent exacerbation. Follow-Up: Symptom-based. (4) Perianal abscess: Code(s): K61.0 - Anal abscess Category: Medical Plan: Non-GI chronic issue being managed by surgery; not acutely infected. Additional Testing: Surgical f/u as scheduled. Medication Management: As per surgery. Lifestyle Recommendations: N/A. Follow-Up: With general surgery as scheduled. Plan Follow-up after colonoscopy or sooner as needed Time: I spent a total of 30 minutes on the date of encounter which includes: Preparing to see the patient (reviewed previous documentation, test results and medical history) Performing a medically appropriate exam and/or evaluation Ordering medications, tests, and procedures Documenting clinical information in the health record Orders: Referrals GI Procedure Notification Z12.11 - Encounter for screening for malignant neoplasm of colon Medications: New bisacodyl Take per colonoscopy instructions 20 mg (4 x 5 mg) PO ONCE 4 tabs 0RF polyethylene glycol 3350 (Miralax) per colonoscopy prep instructions 238 grams PO ONCE 238 grams 0RF bisacodyl Take take two tablets at bedtime starting days five before colonoscopy 10 mg (2 x 5 mg) PO BEDTIME 10 tabs 0RF Discontinued albuterol sulfate Discontinued Reason: Patient no longer taking 2.5 mg (3 mL) continuous nebulization Q4-6H PRN 15 mL 0RF wheezing Coding Level of Care Code New Pt New Pt Level 3 (20611) Patient Type New Diagnoses Colon cancer screening Z12.11 Constipation, unspecified constipation type K59.00 Constipation type: unspecified constipation type Hemorrhoids, unspecified hemorrhoid type K64.9 Hemorrhoid type: unspecified Perianal abscess K61.0
[2025-03-05 07:59] VITALS: BP 145/84; PULSE 76; BMI 28.9
== END 2025-03-05 08:39 | disposition home or self-care (01) ==
LOC: HO.HGI 07:45
PROVIDERS: PCP Internal Medicine; Visit Provider Nurse Practitioner Family
DX: Z01.818 Encounter for other preprocedural examination (principal); Z12.11 Encounter for screening for malignant neoplasm of colon; K59.00 Constipation, unspecified; K61.0 Anal abscess
CPT/HCPCS: S0285

== ENCOUNTER 2025-03-19 10:58 | Outpatient (REF) | payer OTHER, SELFPAY ==
[2025-03-19 13:08] LABS: PSA,Total (Free>4and<10) 5.86 ng/mL (0.00-4.00)
[2025-03-22 12:29] LABS: Free Prostate Spec Ag 0.4 ng/mL; Percent Free Prostate Spec Ag 6 % (calc) (>25)
== END 2025-03-19 10:59 | disposition home or self-care (01) ==
LOC: HO.LAB 10:58
PROVIDERS: PCP Internal Medicine; Visit Provider Urology
DX: Z12.5 Encounter for screening for malignant neoplasm of prostate (principal); R97.20 Elevated prostate specific antigen [PSA]
CPT/HCPCS: 36415; 84153; 84154

== ENCOUNTER 2025-04-07 13:13 | Outpatient (AMB) | payer OTHER, SELFPAY ==
--- NOTE | 2025-04-07 13:17 | A.OFFVIS_ITS ---
Vital Signs 04/07/25 13:32 Height 5 ft 11 in Weight 208 lb 4 oz BMI 29.0 BP 137/83 Blood Pressure Location Lt brachial Position Sitting Pulse 75 Intake Visit Reasons: follow up Intake Note: Patient is seen in office for one month follow up visit, anal fistula. Pt c/o: continued discharge, less than last visit 4 H Youth Development Specialist Required: No Accompanied by: Self / Same As Patient Allergies No Known Allergies (No Known Allergies*) Allergy (Verified 04/07/25 13:31) Medication List - Last Reconciled 04/07/25 by Ousmane Reagan MD albuterol sulfate 90 mcg/actuation 2 puffs inhalation Q6H PRN 30 days beclomethasone dipropionate 80 mcg/actuation (Qvar RediHaler) 1 inh inhalation BID bisacodyl 20 mg (4 x 5 mg) PO ONCE bisacodyl 10 mg (2 x 5 mg) PO BEDTIME chlorthalidone 25 mg PO DAILY 90 days cholecalciferol (vitamin D3) 50 mcg PO DAILY 90 days ibuprofen 600 mg PO Q6H PRN loratadine 10 mg PO DAILY PRN 90 days losartan 100 mg PO DAILY 90 days methylcellulose (laxative) (Citrucel) 500 mg PO BID 30 days multivitamin 1 tab PO DAILY polyethylene glycol 3350 (Miralax) 238 grams PO ONCE potassium chloride ER 20 mEq PO DAILY 90 days sildenafil 50 mg PO DAILY PRN HPI HPI follow up: Details: He is here for follow-up for his anal fistula with a seton in place He says that he feels well overall and denies any problems with the fistula site. He says that he does not have any significant drainage. [facility] Medical History Anal fistula Erectile dysfunction Constipation Vitamin D deficiency Overweight (BMI 25.0-29.9) Migraine Asthma Benign essential hypertension Surgical History Hx of colonoscopy History of hernia surgery Family History Mother Diabetes Father Diabetes High blood pressure Social History Housing: House Are you a primary home care associate to a significant other at home: No Do you presently have visiting nurse or other home services: No Alcohol intake: current Alcohol intake frequency: holidays/special occasions only Alcohol type: beer Comment: medicated Patient Tobacco Use Status: Never used Tobacco e-Cigarette/Vaping Use: Never Used Second Hand Smoke Exposure: Yes service: No Current occupational status: employed Current occupational exposures/hazards: No Cognitive needs: No Hearing needs: No Vision needs: No Review of Systems Const Denies chills and Denies fever(s) Card Denies chest pain at rest Resp Denies cough GI Denies abdominal pain Denies difficulty urinating Physical Exam Vital Signs: Last Vital Signs Pulse 75 04/07/25 13:32 BP 137/83 04/07/25 13:32 BMI result Body Mass Index 29.0 Const General: comfortable and no acute distress Resp Effort & Inspection: normal respiratory effort Cardio Rate: regular rate GI Other: rectal exam -- seton in place with a very short residual fistula tract, no new induration, no sinuses Assessment & Plan Assessment & Plan (1) Anal fistula: Code(s): K60.30 - Anal fistula, unspecified Category: Medical Plan: Seton in place. I tightened the seton with a silk 2-0 tie. This was snug around the remaining fistula tract. The remaining fistula tract is much shorter and anticipate the seton to cut through completely soon. I will see him again in the office in about a month. Coding Level of Care Code Est Pt Level 3 (39660) Diagnoses Anal fistula K60.30
[2025-04-07 13:32] VITALS: BP 137/83; PULSE 75; BMI 29.0
== END 2025-04-07 13:30 | disposition home or self-care (01) ==
LOC: HO.HGS 13:14
PROVIDERS: PCP Internal Medicine; Visit Provider Surgery
DX: K60.30 Anal fistula, unspecified (principal)
CPT/HCPCS: 99213

== ENCOUNTER 2025-04-08 09:42 | Outpatient (AMB) | payer OTHER, SELFPAY ==
--- NOTE | 2025-04-08 09:47 | A.OFFVIS_ITS ---
Intake Visit Reasons: 6m follow up/ psa/SET (NO UA ) Intake Note: Patient is present for 6 mo follow up Urology Medication:POTASSIUM CHLORIDE,SILDENAFIL Antibiotic Allergy:NONE Blood Thinner:NONE Labs done : 03/19/25 Total PSA 5.86 Professor Of Family Medicine Required: No Accompanied by: Self / Same As Patient Allergies No Known Allergies (No Known Allergies*) Allergy (Verified 04/08/25 09:48) HPI Comments Details: Flako is a pleasant male. He is a patient of Dr. Kyle. He is seen for the following urologic conditions - elevated PSA - erectile dysfunction Prior negative prostate biopsy PSA remains mildly elevated We will place on dutasteride/finasteride Elevated PSA Slow rise over past 3 years PSA 01/18 3.5, 01/19 3.9, 01/20 4.9, 08/21 4.5 7%, 03/23 5.8 Prostate biopsy - 10/21 NAD 40 g prostate Erectile dysfunction On demand sildenafil 50 mg Background hypertension, impaired fasting glucose, borderline cholesterol Has been taking 1/2 tablet Encouraged to take whole tablet PFSH Medical History Anal fistula Erectile dysfunction Constipation Vitamin D deficiency Overweight (BMI 25.0-29.9) Migraine Asthma Benign essential hypertension Surgical History Hx of colonoscopy History of hernia surgery Family History Mother Diabetes Father Diabetes High blood pressure Social History Housing: House Are you a primary palliative care nurse practitioner to a significant other at home: No Do you presently have visiting nurse or other home services: No Alcohol intake: current Alcohol intake frequency: holidays/special occasions only Alcohol type: beer Comment: medicated Patient Tobacco Use Status: Never used Tobacco e-Cigarette/Vaping Use: Never Used Second Hand Smoke Exposure: Yes service: No Current occupational status: employed Current occupational exposures/hazards: No Cognitive needs: No Hearing needs: No Vision needs: No Review of Systems Const Denies chills and Denies fever(s) Card Reports no additional complaints and Denies syncope Resp Denies cough GI Denies abdominal pain and Denies heartburn Reports as per HPI and Denies change in libido Neuro Denies syncope Psych Denies change in libido Endo Denies change in libido Physical Exam Const General: cooperative, healthy appearing, comfortable and no acute distress Orientation/consciousness: patient oriented x3 HEENT Face and sinus: Yes normal facial exam Mouth: moist mucous membranes Neck Neck: Yes normal visual inspection, Yes full ROM and Yes trachea midline Chest Chest palpation & inspection: normal inspection of the chest Resp Effort & Inspection: normal respiratory effort, able to speak in complete sentences and no respiratory distress GI Inspection: Yes normal to inspection Back/Spine/Pelvis Cervical Spine: normal cervical lordosis Thoracic/Lumbar Spine: thoracic and lumbar spine normal to inspection Skin General skin exam: no rashes or lesions noted Neuro General: patient oriented x3, gait normal, tone normal and moves all extremities Extrem General: Yes normal to inspection and Yes capillary refill normal Assessment & Plan Assessment & Plan (1) Elevated PSA: Code(s): R97.20 - Elevated prostate specific antigen [PSA] Category: Medical Plan Six-month follow-up PSA Trial dutasteride Orders: Orders PSA,Total (Free>4and<10) 6 Months R97.20 - Elevated prostate specific antigen [PSA] Medications: New dutasteride 0.5 mg PO DAILY 90 caps 1RF 90 days R97.20 - Elevated prostate specific antigen [PSA] Patient Instructions: This note is constructed using voice recognition software. While every effort has been made to ensure accuracy hl7 interface developer errors may have been included. Imaging studies, laboratory and physical exam results were discussed and reviewed in detail. No major barriers to patient understanding were identified. An opportunity to ask questions regarding the treatment plan was provided. All questions were answered. The patient expressed understanding and agreement with the above treatment plan. The patient is aware they should contact our office by phone for worsening of their current condition or the appearance of new urologic symptoms. Compliance is encouraged with any medications and followup testing that is ordered. It is a privilege to participate in the urologic care of your patient. If you have any questions or concerns regarding treatment for the above conditions, or other urologic issues, please do not hesitate to contact me. The office telephone contact is [phone]. Sincerely, Dr Nando Boyd MD, [facility] - Urology Compassionate Specialist Care for the Genitourinary System Coding Level of Care Code Est Pt Level 4 (86377) Diagnoses Elevated PSA R97.20
== END 2025-04-08 10:09 | disposition home or self-care (01) ==
LOC: HO.HUSH 09:43
PROVIDERS: PCP Internal Medicine; Visit Provider Urology
DX: R97.20 Elevated prostate specific antigen [PSA] (principal)
CPT/HCPCS: 99214